=== PATIENT | male | born 1975 | race Caucasian/White ===

== ENCOUNTER → 2016-07-07 | Outpatient (REF) | payer OTHER | LOC: M LAB REF 14:13 | PROVIDERS: ATTEND Physician Assistant | DX: J02.9 Acute pharyngitis, unspecified (principal) ==

== ENCOUNTER 2017-08-31 00:09 | Emergency (ER) | payer OTHER ==
[2017-08-31] MEDS: NS 1,000 ML IV (01:30)
[2017-08-31] MEDS: ONDANSETRON 4MG/2ML VIAL (J2405) IV (01:30)
[2017-08-31 01:33] LABS: BASO # 0.1 10^3/uL (0.0-0.2); BASO % 0.7 % (0.0-1.0); EOS # 0.2 10^3/uL (0.0-0.50); EOS % 3.4 % (0.0-3.0); HEMATOCRIT 43.5 % (42.0-52.0); HEMOGLOBIN 15.7 g/dl (13.5-17.5); IMMATURE GRANULOCYTE % 0.1 % (0-3.0); LYMPH % 14.7 % (24.0-44.0); MEAN CORPUSCULAR HEMOGLOBIN 31.5 pg (27.0-33.0); MEAN CORPUSCULAR HGB CONC 36.1 g/dl (32.0-36.5); MEAN CORPUSCULAR VOLUME 87.3 fl (80.0-96.0); MONO # 0.6 10^3/uL (0.0-0.8); MONO % 7.9 % (0.0-5.0); NEUTROPHILS # 5.1 10^3/uL (1.8-7.7); NEUTROPHILS % 73.2 % (36.0-66.0); PLATELET COUNT, AUTOMATED 165 10^3/uL (150-450); RED BLOOD COUNT 4.98 10^6/uL (4.30-6.10); RED CELL DISTRIBUTION WIDTH 11.9 % (11.5-14.5)
[2017-08-31] MEDS: MORPHINE 4 MG/ML 1ML VIAL/SYRINGE (J2270) IV (01:33)
[2017-08-31 01:41] LABS: KETONE, URINE AUTO RFX TRACE mg/dL (NEGATIVE); MUCUS, URINE RFX MODERATE (NEGATIVE); NITRITE, URINE AUTO RFX NEGATIVE (NEGATIVE); RBC, URINE AUTO RFX 2 /HPF (0-3); SPECIFIC GRAVITY UR AUTO RFX 1.025 (1.002-1.035); SQUAM EPITHELIAL CELL UR AURFX 0 /HPF (0-6)
[2017-08-31 01:44] LABS: ALBUMIN 4.1 GM/DL (3.2-5.2); ALBUMIN/GLOBULIN RATIO 1.14 (1.00-1.93); ALKALINE PHOSPHATASE 82 U/L (45-117); ALT/SGPT 29 U/L (12-78); ANION GAP 5 MEQ/L (8-16); AST/SGOT 18 U/L (7-37); BILIRUBIN,DIRECT 0.2 MG/DL (0.0-0.2); BILIRUBIN,TOTAL 0.5 MG/DL (0.2-1.0); BLOOD UREA NITROGEN 11 MG/DL (7-18); CALCIUM LEVEL 8.6 MG/DL (8.5-10.1); CARBON DIOXIDE LEVEL 32 MEQ/L (21-32); CHLORIDE LEVEL 105 MEQ/L (98-107); CREATININE FOR GFR 1.23 MG/DL (0.70-1.30); GLOMERULAR FILTRATION RATE > 60.0 (>60); GLUCOSE, FASTING 139 MG/DL (70-100); LIPASE 115 U/L (73-393); POTASSIUM SERUM 3.6 MEQ/L (3.5-5.1); SODIUM LEVEL 142 MEQ/L (136-145); TOTAL PROTEIN 7.7 GM/DL (6.4-8.2)
[2017-08-31 01:46] LABS: LEUKOCYTE ESTERASE UR AUTO RFX 1+ (NEGATIVE); WBC, URINE AUTO RFX 24 /HPF (0-3)
[2017-08-31] MEDS ORDERED: ISOVUE-370 76% 100ML VIAL (Q9967) As Ordered (02:19)
[2017-08-31] MEDS: METOCLOPRAMIDE INJ 10MG/2ML VIAL (J2765) IV (03:54)
== END 2017-08-31 05:19 | disposition home or self-care (01) ==
LOC: M ED 00:09
DX: N20.1 Calculus of ureter (principal); K51.90 Ulcerative colitis, unspecified, without complications; K21.9 Gastro-esophageal reflux disease without esophagitis; K57.30 Diverticulosis of large intestine without perforation or abscess without bleeding; K76.0 Fatty (change of) liver, not elsewhere classified; Z79.899 Other long term (current) drug therapy; Z88.8 Allergy status to other drugs, medicaments and biological substances
CPT/HCPCS: J2270

== ENCOUNTER → 2019-12-23 | Outpatient (REF) | payer OTHER ==
[~2019-12-23] MED LIST: AMIT25TA PO; APRI0.37 PO; ENTY1INJ IV; FAMO40TA3 PO; IRON65TA PO; ROWASA PR; VITA200016 PO; ZOFR4TAB14 PO; [UNRECOGNIZED DRUG - OTHER] PO
[2019-12-24 14:18] LABS: HEMATOCRIT 29.8 % (42.0-52.0); HEMOGLOBIN 9.7 g/dl (13.5-17.5); MEAN CORPUSCULAR HEMOGLOBIN 30.8 pg (27.0-33.0); MEAN CORPUSCULAR HGB CONC 32.6 g/dl (32.0-36.5); MEAN CORPUSCULAR VOLUME 94.6 fl (80.0-96.0); PLATELET COUNT, AUTOMATED 150 10^3/uL (150-450); RED BLOOD COUNT 3.15 10^6/uL (4.30-6.10); WHITE BLOOD COUNT 13.8 10^3/uL (4.0-10.0)
[2019-12-24 14:27] LABS: ALBUMIN 3.1 GM/DL (3.2-5.2); ALT/SGPT 29 U/L (12-78); BILIRUBIN,TOTAL 0.3 MG/DL (0.2-1.0); BLOOD UREA NITROGEN 16 MG/DL (7-18); CALCIUM LEVEL 8.9 MG/DL (8.5-10.1); CARBON DIOXIDE LEVEL 28 MEQ/L (21-32); CHLORIDE LEVEL 101 MEQ/L (98-107); CREATININE FOR GFR 0.79 MG/DL (0.70-1.30); GLOMERULAR FILTRATION RATE > 60.0 (>60); GLUCOSE, FASTING 72 MG/DL (70-100); POTASSIUM SERUM 3.9 MEQ/L (3.5-5.1); SODIUM LEVEL 136 MEQ/L (136-145); TOTAL PROTEIN 6.7 GM/DL (6.4-8.2)
[2019-12-24 14:56] LABS: ERYTHROCYTE SEDIMENTATION RATE 60 mm/hr (0-15)
[2019-12-24 15:00] LABS: ATYPICAL LYMPH 1 % (0-5); LYMPHOCYTES 5 % (16-44); METAMYELOCYTES 1 % (0-0); NEUTROPHILS 85 % (28-66)
[2019-12-24 15:01] LABS: PLATELET ESTIMATE NORMAL (NORMAL)
[2019-12-24 15:03] LABS: BURR CELLS 1+
[2019-12-24 15:05] LABS: POIKILOCYTOSIS 1+
== END ==
LOC: M SHH 13:53
PROVIDERS: ATTEND Internal Medicine Hematology & Oncology
DX: K65.1 Peritoneal abscess (principal)

== ENCOUNTER 2020-03-16 14:18 | Inpatient (IN) | payer OTHER ==
[~2020-03-16] VITALS: Ht 177.8 cm; Wt 77.0 kg
[2020-03-16] MEDS ORDERED: NS 2,400 ML in IV 1 EA IV ONE (15:45)
[2020-03-16] MEDS ORDERED: ACETAMINOPHEN 325 MG TAB PO ONE (15:45)
[2020-03-16 16:45] LABS: HEMATOCRIT 25.6 % (42.0-52.0); HEMOGLOBIN 7.9 g/dl (13.5-17.5); MEAN CORPUSCULAR HEMOGLOBIN 31.5 pg (27.0-33.0); MEAN CORPUSCULAR HGB CONC 30.9 g/dl (32.0-36.5); RED BLOOD COUNT 2.51 10^6/uL (4.30-6.10); WHITE BLOOD COUNT 18.6 10^3/uL (4.0-10.0)
--- NOTE | 2020-03-16 16:45 | REP ---
INDICATION: fever. COMPARISON: No comparison study. TECHNIQUE: Two views.. FINDINGS: There is a right-sided Tzqhut-H-Nggh catheter with its tip in the expected location of the superior vena cava near the right atrial junction. The lungs are symmetrically aerated and free of infiltrate. There is slight blunting of the right lateral and both posterior pleural angles indicating small amount of pleural fluid and or pleural thickening posteriorly. No infiltrate is seen. Heart is not enlarged. Pulmonary vasculature is not increased. IMPRESSION: No active cardiopulmonary disease seen. Slight blunting of the posterior pleural angles. Vegaux-P-Kkyh catheter.. <Electronically signed by Edward Peralta > 03/16/20 [id number]
[2020-03-16 16:47] LABS: APPEARANCE, URINE CLEAR (CLEAR); BACTERIA, URINE AUTO NEGATIVE (NEGATIVE); BILIRUBIN, URINE AUTO NEGATIVE (NEGATIVE); BLOOD, URINE BLOOD NEGATIVE (NEGATIVE); COLOR, URINE YELLOW (YELLOW); GLUCOSE, URINE (UA) AUTO NEGATIVE (NEGATIVE); KETONE, URINE AUTO NEGATIVE (NEGATIVE); LEUKOCYTE ESTERASE, URINE AUTO NEGATIVE (NEGATIVE); MUCUS, URINE SMALL (NEGATIVE); NITRITE, URINE AUTO NEGATIVE (NEGATIVE); PROTEIN, URINE AUTO NEGATIVE (NEGATIVE); RBC, URINE AUTO 0 /HPF (0-3); SPECIFIC GRAVITY URINE AUTO 1.021 (1.002-1.035); SQUAMOUS EPITHELIAL CELL UR AU 0 /HPF (0-6); UROBILINOGEN, URINE AUTO 0.2 mg/dL (0.0-2.0); WBC, URINE AUTO 1 /HPF (0-3)
[2020-03-16 16:58] LABS: PLATELET COUNT, AUTOMATED 68 10^3/uL (150-450)
[2020-03-16 17:01] LABS: EOSINOPHILS 1 % (0-3); LYMPHOCYTES 8 % (16-44); NEUTROPHILS 86 % (28-66); PLATELET ESTIMATE DECREASED (NORMAL); TOXIC VACUOLATION 1+
[2020-03-16 17:02] LABS: ANISOCYTOSIS 1+
[2020-03-16 17:10] LABS: INR 1.03; PARTIAL THROMBOPLASTIN TIME 29.8 SECONDS (24.2-38.5); PROTHROMBIN TIME 13.7 SECONDS (12.5-14.3)
[2020-03-16 17:20] LABS: ALT/SGPT 70 U/L (12-78); BILIRUBIN,DIRECT 0.2 MG/DL (0.0-0.2); BILIRUBIN,TOTAL 0.4 MG/DL (0.2-1.0); BLOOD UREA NITROGEN 15 MG/DL (7-18); C REACTIVE PROTEIN QUANTITATIV 8.04 MG/DL (0.00-0.30); CALCIUM LEVEL 8.8 MG/DL (8.5-10.1); CARBON DIOXIDE LEVEL 30 MEQ/L (21-32); CHLORIDE LEVEL 100 MEQ/L (98-107); CK-MB VALUE MASS < 1.0 NG/ML (<3.6); CPK CREATINE PHOSPHOKINASE 110 U/L (39-308); GLOMERULAR FILTRATION RATE > 60.0 (>60); GLUCOSE, FASTING 87 MG/DL (70-100); MB/CK RELATIVE INDEX 0.91 (< OR =4); POTASSIUM SERUM 3.8 MEQ/L (3.5-5.1); SODIUM LEVEL 134 MEQ/L (136-145); TOTAL PROTEIN 6.6 GM/DL (6.4-8.2); TROPONIN I < 0.02 NG/ML (< 0.10)
[2020-03-16 17:33] LABS: D-DIMER QUANT > 4000 ng/ml (<500)
[2020-03-16] MEDS ORDERED: ISOVUE-370 76% 100ML VIAL As Ordered ONE (17:50)
[2020-03-16] MEDS ORDERED: THERTAB52 PO (18:38)
[2020-03-16] MEDS ORDERED: COLA100C5 PO (18:38)
[2020-03-16] MEDS ORDERED: FLON1SPR NARES (18:38)
[2020-03-16] MEDS ORDERED: ATIV1TAB10 PO ×2 (18:38→22:14)
[2020-03-16] MEDS ORDERED: PROC10TA4 PO ×2 (18:38→22:17)
[2020-03-16] MEDS ORDERED: ETOP50CA2 (18:41)
[2020-03-16] MEDS ORDERED: CARB450I12 (18:41)
--- NOTE | 2020-03-16 18:47 | REPVR ---
PROCEDURE INFORMATION: Exam: CT Abdomen And Pelvis With Contrast Exam date and time: 03/16/2020 6:13 PM Age: 44 years old Clinical indication: Fever TECHNIQUE: Imaging protocol: Computed tomography of the abdomen and pelvis with intravenous contrast. Radiation optimization: All CT scans at this facility use at least one of these dose optimization techniques: automated exposure control; mA and/or kV adjustment per patient size (includes targeted exams where dose is matched to clinical indication); or iterative reconstruction. Contrast material: ISOVUE 370; Contrast volume: 100 ml; Contrast route: INTRAVENOUS (IV); COMPARISON: CT ABD/PEL W/IV CONTRAST ONLY 08/31/2017 2:25 AM FINDINGS: Lungs: Compressive atelectasis both lung bases. Pleural space: Small bilateral pleural effusions, right greater than left. Liver: Extensive centrally necrotic bulls eye type metastatic lesions demonstrated throughout the liver measuring up to 5.6 cm in segment 2 of the left lobe. Hepatomegaly. Cystic focus in the posterior aspect of the right lobe of the liver measures 1.6 x 4 x 2.9 cm may represent a necrotic metastasis versus a hepatic cyst. Gallbladder and bile ducts: Normal. No calcified stones. No ductal dilation. Pancreas: Normal. No ductal dilation. Spleen: There is mild splenomegaly with a maximum span of 13.6 centimeters. No focal abnormalities demonstrated. Adrenal glands: Normal. No mass. Kidneys and ureters: Normal. No hydronephrosis. Stomach and bowel: Diverting colostomy in the left side of the abdomen. Ileostomy right side of the abdomen. Appendix: No evidence of appendicitis. Intraperitoneal space: There is a small amount of free intraperitoneal fluid present. Vasculature: Unremarkable. No abdominal aortic aneurysm. Lymph nodes: Unremarkable. No enlarged lymph nodes. Urinary bladder: See "Soft tissues" finding. Reproductive: 3.2 x 3 x 5.9 cm stellate enhancing mass in the pelvic floor located posterosuperior to the seminal vesicles consistent with a drop metastasis. Bones/joints: Unremarkable. No acute fracture. Soft tissues: Heterogeneously enhancing necrotic mass demonstrated in the left lower quadrant measuring 6.9 x 7 x 8 cm arising from/encasing the descending colon, and invading the abdominal wall musculature anteriorly and anterolaterally. Small focus of gas demonstrated within the mass. Small fat containing umbilical hernia. Clinical correlation to exclude incarceration suggested. IMPRESSION: 1. Extensive centrally necrotic bulls eye type metastatic lesions demonstrated throughout the liver measuring up to 5.6 cm in segment 2 of the left lobe. Hepatomegaly. 2. There is mild splenomegaly. No focal abnormalities demonstrated. 3. Locally invasive necrotic mass demonstrated in the left lower quadrant as described above. Small focus of gas in the mass may be related to necrosis although infection is not excluded. 4. 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 5. There is a small amount of free intraperitoneal fluid present. 6. Small fatty umbilical hernia. Clinical correlation to exclude incarceration suggested. Electronically signed by: Geovanni Hernandez On 03/16/2020 18:47:31 PM
--- NOTE | 2020-03-16 18:52 | REPVR ---
PROCEDURE INFORMATION: Exam: CT Angiography Chest With Contrast Exam date and time: 03/16/2020 6:13 PM Age: 44 years old Clinical indication: Fever TECHNIQUE: Imaging protocol: Computed tomographic angiography of the chest with intravenous contrast. 3D rendering (Not supervised by radiologist): MIP and/or 3D reconstructed images were created by the technologist. Radiation optimization: All CT scans at this facility use at least one of these dose optimization techniques: automated exposure control; mA and/or kV adjustment per patient size (includes targeted exams where dose is matched to clinical indication); or iterative reconstruction. Contrast material: ISOVUE 370; Contrast volume: 100 ml; Contrast route: INTRAVENOUS (IV); COMPARISON: IN Chest, 2 view PA, Lat 03/16/2020 3:56 PM FINDINGS: Pulmonary arteries: There are no pulmonary emboli. Aorta: There is no aortic dissection or aneurysm. Lungs: Compressive atelectasis both lung bases. Pleural space: Bilateral small pleural effusions. Right greater than left. Heart: Unremarkable. No cardiomegaly. No pericardial effusion. Lymph nodes: Bilateral hilar lymphadenopathy. Bones/joints: Small sclerotic focus in the right 4th rib. The spine demonstrates mild degenerative changes. Soft tissues: Small calcified granulomata left lung. IMPRESSION: 1. Bilateral small pleural effusions. Right greater than left. 2. There is no aortic dissection or aneurysm. 3. Bilateral hilar lymphadenopathy. 4. There are no pulmonary emboli. 5. No acute pulmonary infiltrates. Electronically signed by: Geovanni Hernandez On 03/16/2020 18:53:24 PM
[2020-03-16] MEDS ORDERED: ACETAMINOPHEN 500 MG TAB PO ONE (22:00)
[2020-03-16] MEDS ORDERED: FAMO40TA3 PO (22:14)
[2020-03-16] MEDS ORDERED: [UNRECOGNIZED DRUG - CODE] IV (22:14)
[2020-03-16] MEDS ORDERED: D31000TA2 PO (22:14)
[2020-03-16] MEDS ORDERED: CARB450I12 IV (22:14)
[2020-03-16] MEDS ORDERED: FLON1SPR (22:14)
[2020-03-16] MEDS ORDERED: ONDA-83 PO (22:17)
[2020-03-16] MEDS ORDERED: ONDANSETRON 4MG/2ML VIAL IV PRN (22:45)
[2020-03-16 23:28] LABS: MAGNESIUM LEVEL 1.7 MG/DL (1.8-2.4)
[2020-03-16] MEDS: PIPERACILLIN/TAZOBACTAM SOD 3.375 GM in D5W MINI-BAG PLUS 50 ML IV SCH (23:41)
[2020-03-16] MEDS: NS 1,000 ML IV SCH (23:41)
--- NOTE | 2020-03-16 23:58 | HPEPDOC ---
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 Patient reports that he was noted to have a fever of 99.9 Fahrenheit and had taken Tylenol. Patient reported that he was having an increased heart rate and chills. Patient reported that his visiting home health aide had reported that he had decreased sounds in his lung bases. Patient reports some shortness of breath, but denies any cough, chest pain or palpitations. Patient reports that he has an ileostomy and mucous stoma, both of which have output that has not changed significantly. Patient denies any abdominal pain. Reports that he does have some output from his rectum, although not significant. Denies any urinary discomfort. Patient recently was found to be anemic and was requiring 1 unit PRBC tra nsfusion on Monday. Patient receives all his care at [facility] where he has received his oncologic evaluation and surgical intervention. 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; involving 2 drainage catheters, complicated by colonic abscess, fistula Ulcerative colitis; previously was on Entyvio Past Surgical History: Small bowel obstruction with ileostomy ascending and transverse colon resection 02/09/2020 - His descending and sigmoid colon are still present and there is a mucous stoma at the proximal site of his descending colon Vasectomy 2010 Right wrist fracture as a child Allergies: See below Medications: See below Family History: - Mother with a history of elevated blood pressure in father with a history of diverticulosis, BPH and hypothyroidism Social History: - Denies the use of alcohol, tobacco or illicit drugs - Denies recent travel or sick contacts - Lives with and 2 children - 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 Review of Systems: 10 point review of systems complete, all negative otherwise stated in HPI Physical exam: - Vitals: BP [116/55], HR [116], RR [18], Sat [94%RA], Temp [102.2F] - General: Lying in bed, appears to be comfortable, Speaking in full sentences, AAOx3 - HEENT: NC, AT, PERRLA - CVS: RRR, +S1S2, - Murmurs / rubs / gallops - Lungs: Diminished lung sounds at bases, No appreciable wheezing / rales / rhonchi - Abdomen: Soft, Non-distended, Non-tender, right upper quadrant with ileostomy stoma, left upper quadrant with mucous stoma, 2 areas in the left lower quadrant dressing in place from his prior drains - Extremities: No lower extremity edema, No calf tenderness - Neuro: No focal motor or sensory deficit - Skin: No visible rashes Labs: See below Imaging: CXR 03/16: No active cardiopulmonary disease seen. Slight blunting of the posterior pleural angles. Rqrwin-A-Lzeb catheter.. CTA chest 03/16: 1. Bilateral small pleural effusions. Right greater than left. 2. There is no aortic dissection or aneurysm. 3. Bilateral hilar lymphadenopathy. 4. There are no pulmonary emboli. 5. No acute pulmonary infiltrates. CTA abdomen / pelvis 03/16: 1. Extensive centrally necrotic bulls eye type metastatic lesions demonstrated throughout the liver measuring up to 5.6 cm in segment 2 of the left lobe. Hepatomegaly. 2. There is mild splenomegaly. No focal abnormalities demonstrated. 3. Locally invasive necrotic mass demonstrated in the left lower quadrant as described above. Small focus of gas in the mass may be related to necrosis although infection is not excluded. 4. 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 5. There is a small amount of free intraperitoneal fluid present. 6. Small fatty umbilical hernia. Clinical correlation to exclude incarceration suggested. EKG: See below Assessment and Plan: Fever / Leukocytosis - possibly 2/2 intra-abdominal, possibly 2/2 bacteremia - Presented to the emergency room with complaints of fevers that started today, associated with chills and shortness breath with exertion - Reported history of VRE abscess within his abdomen - Physical reveals diminished lung sounds at bases - Leukocytosis with neutrophil predominance and bandemia - Elevated CRP - UA negative - Imaging noted above; no evidence of pneumonia, however there appears to be the left lower quadrant mass with small focus of gas and necrotic lesion in the liver - Will check blood cultures 2 sets / pro-calcitonin - Will start IV fluid hydration / broad spectrum antibiotics (Vancomycin and Daptomycin) Symptomatic anemia - Patient reports that he has received a contusion on Monday for a low hemoglobin across hospital - Will transfuse 2 units PRBC today Thrombocytopenia - No evidence of bleeding - Will continue to monitor Hyponatremia (mild) - likely 2/2 hypotonic hypovolemic etiology - Will c/w IV fluid hydration - Will perform workup if still remains abnormal 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 - Diagnosed 11/2018, early stage, with 4 rounds of chemotherapy - Recurrence 10/2019, reported metastatic, on chemotherapy currently VRE Abscess 11/2019 - Required 2 drainage catheters, complicated by fistula development Ulcerative colitis - Previously was on Entyvio; has stopped use currently DVT prophylaxis - Will start TEDs/Sequentials Vital Signs Vital Signs Date Time Temp Pulse Resp B/P (MAP) Pulse Ox O2 Delivery O2 Flow Rate FiO2 03/16/20 23:41 102.2 116 18 116/55 (75) 94 Room Air Laboratory Data Labs 24H Laboratory Tests 2 03/16/20 16:25: 03/16/20 16:34: Immature Granulocyte % (Auto) , Neutrophils (%) (Auto) , Nucleated Red Blood Cells % (auto) 0.0, Neutrophils 86H, Band Neutrophils 5, Lymphocytes (Manual) 8L, Eosinophils (Manual) 1, Anisocytosis 1+, Macrocytosis 2+, Toxic Vacuolation 1+, Platelet Estimate DECREASED, Immature Platelet Fraction 4.7, Prothrombin Time 13.7, Prothromb Time International Ratio 1.03, Activated Partial Thromboplast Time 29.8, D-Dimer, Quantitative > 4000H, Urine Color YELLOW, Urine Appearance CLEAR, Urine pH 5.0, Urine Specific [place] 1.021, Urine Protein NEGATIVE, Urine Glucose (Auto)(UA) NEGATIVE, Urine Ketones (Auto) NEGATIVE, Urine Blood NEGATIVE, Urine Nitrite NEGATIVE, Urine Bilirubin NEGATIVE, Urine Urobilinogen 0.2, Urine Leukocyte Esterase (Auto) NEGATIVE, Urine WBC (Auto) 1, Urine RBC (Auto) 0, Urine Hyaline Casts (Auto) 0, Urine Bacteria (Auto) NEGATIVE, Urine Squamous Epithelial Cells 0, Urine Mucus (Auto) SMALL, Urine Sperm (Auto) , Anion Gap 4L, Glomerular Filtration Rate > 60.0, Lactic Acid Level 1.7, Calcium Level 8.8, Magnesium Level 1.7L, Total Bilirubin 0.4, Direct Bilirubin 0.2, Aspartate Amino Transf (AST/SGOT) 50H, Alanine Aminotransferase (ALT/SGPT) 70, Alkaline Phosphatase 349H, Total Creatine Kinase 110, Creatine Kinase MB < 1.0, Creatine Kinase MB Relative Index 0.91, Troponin I < 0.02, C- Reactive Protein, Quantitative 8.04H, Total Protein 6.6, Albumin 3.0L, Albumin/Globulin Ratio 0.8 CBC/BMP Laboratory Tests 03/16/20 16:34 Microbiology Microbiology 03/16/20 Respiratory Virus Panel (PCR) ([facility]) - Final, Complete 03/16/20 Blood Culture, Received Pending 03/16/20 Urine Culture, Received Pending 03/16/20 Blood Culture, Received Pending Home Medications Scheduled Carboplatin (Carboplatin) 10 Mg/1 Ml Vial, Unknown Dose IV ASDIRECTED EVERY 3 WEEKS AT ONCOLOGY Cholecalciferol (Vitamin D3) (Vitamin D3) 1,000 Unit Tablet, 2,000 UNITS PO DAILY Docusate Sodium (Colace) 100 Mg Capsule, 200 MG PO DAILY Etoposide Phosphate (Etopophos) 100 Mg Vial, Unknown Dose IV ASDIRECTED EVERY 3 WEEKS AT ONCOLOGY Famotidine (Famotidine) 40 Mg Tablet, 40 MG PO DAILY Fluticasone Propionate (Flonase Allergy Relief) 9.9 Ml [place].susp, 1 SPRAY NA DAILY Scheduled PRN Ondansetron HCl (Ondansetron HCl) 4 Mg Tablet, 4 MG PO Q6HP PRN for NAUSEA OR VOMITING Prochlorperazine Maleate (Prochlorperazine Maleate) 10 Mg Tablet, 10 MG PO Q6H PRN for NAUSEA OR VOMITING Allergies Coded Allergies: azathioprine (Verified Allergy, Severe, pancreatitis, 03/16/20) OSMAN KIRBY MD Mar 16, 2020 23:58
[2020-03-17] VITALS (13 sets, daily range): BP systolic 102–147; BP diastolic 55–70
[2020-03-17] MEDS: DAPTOmycin 500 MG in NS 50 ML IV SCH ×2
--- NOTE | 2020-03-17 00:49 | ECGEPIP ---
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
[2020-03-17] MEDS: ACETAMINOPHEN TAB 650MG DOSE (2X325MG) PO PRN ×2 (04:33→20:41)
[2020-03-17] MEDS: PIPERACILLIN/TAZOBACTAM SOD 3.375 GM in D5W MINI-BAG PLUS 50 ML IV SCH ×4 (04:33→23:33)
[2020-03-17] MEDS: NS 1,000 ML IV SCH ×2 (05:07→12:05)
[2020-03-17 06:04] LABS: MEAN CORPUSCULAR HEMOGLOBIN 31.8 pg (27.0-33.0); MEAN CORPUSCULAR HGB CONC 31.3 g/dl (32.0-36.5); MEAN CORPUSCULAR VOLUME 101.5 fl (80.0-96.0); RED BLOOD COUNT 1.95 10^6/uL (4.30-6.10); WHITE BLOOD COUNT 8.3 10^3/uL (4.0-10.0)
[2020-03-17 06:18] LABS: HEMATOCRIT 19.8 % (42.0-52.0); HEMOGLOBIN 6.2 g/dl (13.5-17.5); PLATELET COUNT, AUTOMATED 44 10^3/uL (150-450)
[2020-03-17 06:30] LABS: BLOOD UREA NITROGEN 12 MG/DL (7-18); CALCIUM LEVEL 7.9 MG/DL (8.5-10.1); CARBON DIOXIDE LEVEL 26 MEQ/L (21-32); CHLORIDE LEVEL 102 MEQ/L (98-107); CREATININE FOR GFR 0.61 MG/DL (0.70-1.30); GLOMERULAR FILTRATION RATE > 60.0 (>60); GLUCOSE, FASTING 106 MG/DL (70-100); MAGNESIUM LEVEL 1.6 MG/DL (1.8-2.4); POTASSIUM SERUM 3.6 MEQ/L (3.5-5.1); SODIUM LEVEL 134 MEQ/L (136-145)
[2020-03-17] MEDS ORDERED: IBUPROFEN 600MG TAB PO ONE (06:30)
[2020-03-17 06:45] LABS: LYMPHOCYTES 2 % (16-44); METAMYELOCYTES 1 % (0-0); MONOCYTES 1 % (0-5); NEUTROPHILS 90 % (28-66); PLATELET ESTIMATE MARKED DECREASE (NORMAL)
[2020-03-17 06:47] LABS: DOHLE BODIES 1+
[2020-03-17] MEDS: DOCUSATE SODIUM 100MG CAPSULE PO SCH (08:45)
[2020-03-17] MEDS: FLUTICASONE PROP 0.05% NASAL SPRAY 16 GM (FLONASE) SCH (08:45)
[2020-03-17] MEDS: FAMOTIDINE 20 MG TAB PO SCH (08:45)
[2020-03-17] MEDS: VITAMIN D 1,000 INTERNATIONAL UNITS TABLET PO SCH (08:45)
--- NOTE | 2020-03-17 09:53 | IPNPDOC ---
Date Seen The patient was seen on 03/17/20. Progress Note Subjective: LLQ abd drain site soaked overnight, and malodorous discharge from right ileostomy which has increased drainage through filter. still febrile. not c/o much pain. Objective: PE vitals: see belwo General: no distress. AAOx3 HEENT: no JVD no thyromegaly tongue midline CVS: RRR, +S1S2 nondisplaced PMI Lungs: Diminished. CTAB no adventitious breath sounds Abdomen: Soft, Non-distended, Non-tender, right upper quadrant ileostomy stoma, left upper quadrant with mucous stoma, 2 LLQ incisions. Extremities: No lower extremity edema, No calf tenderness Labs: See below Imaging: CXR 03/16: No active cardiopulmonary disease seen. Slight blunting of the posterior pleural angles. Atkyjp-S-Rwgc catheter.. CTA chest 03/16: 1. Bilateral small pleural effusions. Right greater than left. 2. There is no aortic dissection or aneurysm. 3. Bilateral hilar lymphadenopathy. 4. There are no pulmonary emboli. 5. No acute pulmonary infiltrates. CTA abdomen / pelvis 03/16: 1. Extensive centrally necrotic bulls eye type metastatic lesions demonstrated throughout the liver measuring up to 5.6 cm in segment 2 of the left lobe. Hepatomegaly. 2. There is mild splenomegaly. No focal abnormalities demonstrated. 3. Locally invasive necrotic mass demonstrated in the left lower quadrant as described above. Small focus of gas in the mass may be related to necrosis although infection is not excluded. 4. 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 5. There is a small amount of free intraperitoneal fluid present. 6. Small fatty umbilical hernia. Clinical correlation to exclude incarceration suggested. Assessment: Sepsis Intraabdominal Abscess-liver necrotic area, llq mass eroding into abd wall? 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 If continues to be febrile with increased leukocytosis, may need ID consult. await culture results.IR consulted for drainage placement. VS, I&O, 24H, Fishbone Vital Signs/I&O Vital Signs Date Time Temp Pulse Resp B/P (MAP) Pulse Ox O2 Delivery O2 Flow Rate FiO2 03/17/20 05:25 101.2 03/17/20 04:08 119 19 147/70 (95) 94 Room Air I&O- Last 24 Hours up to 6 AM 03/17/20 06:00 Intake Total 2860 ml Output Total 900 ml Balance 1960 ml Laboratory Data 24H LABS Laboratory Tests 2 03/16/20 16:25: 03/16/20 16:34: Immature Granulocyte % (Auto) , Neutrophils (%) (Auto) , Nucleated Red Blood Cells % (auto) 0.0, Neutrophils 86H, Band Neutrophils 5, Lymphocytes (Manual) 8L, Eosinophils (Manual) 1, Anisocytosis 1+, Macrocytosis 2+, Toxic Vacuolation 1+, Platelet Estimate DECREASED, Immature Platelet Fraction 4.7, Prothrombin Time 13.7, Prothromb Time International Ratio 1.03, Activated Partial Th romboplast Time 29.8, D-Dimer, Quantitative > 4000H, Urine Color YELLOW, Urine Appearance CLEAR, Urine pH 5.0, Urine Specific [place] 1.021, Urine Protein NEGATIVE, Urine Glucose (Auto)(UA) NEGATIVE, Urine Ketones (Auto) NEGATIVE, Urine Blood NEGATIVE, Urine Nitrite NEGATIVE, Urine Bilirubin NEGATIVE, Urine Urobilinogen 0.2, Urine Leukocyte Esterase (Auto) NEGATIVE, Urine WBC (Auto) 1, Urine RBC (Auto) 0, Urine Hyaline Casts (Auto) 0, Urine Bacteria (Auto) NEGATIVE, Urine Squamous Epithelial Cells 0, Urine Mucus (Auto) SMALL, Urine Sperm (Auto) , Anion Gap 4L, Glomerular Filtration Rate > 60.0, Lactic Acid Level 1.7, Calcium Level 8.8, Magnesium Level 1.7L, Total Bilirubin 0.4, Direct Bilirubin 0.2, Aspartate Amino Transf (AST/SGOT) 50H, Alanine Aminotransferase (ALT/SGPT) 70, Alkaline Phosphatase 349H, Total Creatine Kinase 110, Creatine Kinase MB < 1.0, Creatine Kinase MB Relative Index 0.91, Troponin I < 0.02, C- Reactive Protein, Quantitative 8.04H, Total Protein 6.6, Albumin 3.0L, Albumin/Globulin Ratio 0.8 03/17/20 05:45: Immature Granulocyte % (Auto) , Neutrophils (%) (Auto) , Nucleated Red Blood Cells % (auto) 0.0, Neutrophils 90H, Band Neutrophils 6, Lymphocytes (Manual) 2L, Platelet Estimate MARKED DECREASE, Anion Gap 6L, Glomerular Filtration Rate > 60.0, Calcium Level 7.9L, Magnesium Level 1.6L, Monocytes (Manual) 1, Metamyelocytes 1H, Red Blood Cell Morphology NORMAL, Dohle Bodies 1+ CBC/BMP Laboratory Tests 03/16/20 16:34 03/17/20 05:45 Microbiology Microbiology 03/16/20 Respiratory Virus Panel (PCR) ([facility]) - Final, Complete 03/16/20 Blood Culture, Received Pending 03/16/20 Urine Culture, Received Pending 03/16/20 Blood Culture, Received Pending PREETHI WARNER MD Mar 17, 2020 09:01
[2020-03-17] MEDS ORDERED: IBUPROFEN 400 MG TAB PO PRN (12:30)
[2020-03-17] MEDS ORDERED: IBUPROFEN 400 MG TAB PO ONE (12:30)
[2020-03-17] MEDS ORDERED: MAG SULF 1GM/100ML (MAG RUN) 1 GM in IV 1 EA IV ONE (13:00)
[2020-03-17 19:07] LABS: HEMATOCRIT 23.6 % (42.0-52.0); HEMOGLOBIN 7.5 g/dl (13.5-17.5)
--- NOTE | 2020-03-17 20:03 | CR ---
INFECTIOUS DISEASE CONSULTATION REASON FOR CONSULTATION: Fever in a patient with left sigmoid abscess with perforation and fistula and metastatic small cell neuroendocrine carcinoma. 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 The patient has had multiple problems since this recurrent cancer. He was started on chemotherapy every 3 weeks with Carboplatin and Etoposide 3 days every 3 weeks along with Neulasta. The patient was scheduled every 21 days until disease progression or intolerable side effects. He developed a fever with every single chemotherapy and was hospitalized initially with this sigmoid abscess that was drained. The drain stayed in place for about a week, then was removed. A second hospitalization around February 03 for 3 weeks. He had another drain placed in the left lower quadrant; that stayed in for a couple months and always had problems with leakage around the drain and the patient could not wait to get that drain removed. Once of the initial drains has healed but the other drain still has purulent discharge from the area. He had his chemotherapy last week Monday, and Monday and presented to the hospital today with recurrent fever up to 102.4, chills, shortness of breath. The patient was started on broad spectrum antibiotics including Daptomycin and Zosyn. He feels better today. He denies any cough. No nausea or vomiting. No urinary symptoms. No dysuria or hematuria. He does sometimes have pressure which he relates to the multiple abdominal surgeries he has had. PAST MEDICAL HISTORY: The patient's past medical history is significant for: 1. Ulcerative colitis on Entyvio which has been on hold since November. 2. 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 3. 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 Infectious Disease was consulted while he was in the hospital. He had home IV antibiotics for a short while. 4. Aviary abscess in November 2019 with two drainage procedures with now a fistula. PAST SURGICAL HISTORY: The patient's past surgical history is significant for: 1. Early February the patient had a right sided colectomy with transverse colectomy and a small-bowel obstruction with ileostomy of the ascending colon. Sigmoid and descending are still present and a mucostoma was formed until the patient can have a total colectomy once his cancer is under better control. 2. History of vasectomy. 3. Right wrist fracture as a child. FAMILY HISTORY: The patient's family history is positive for hypertension and diverticulosis. SOCIAL HISTORY: He is . He lives with his and children. 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. He denies any recent travel. He denies alcohol or drug use. ALLERGIES: Azathioprine caused pancreatitis. LABORATORY DATA: White count was 18.6 yesterday. Today it was 8.3. Hemoglobin 7.9, today 6.2, hematocrit 19.8, platelets 44, 19% neutrophils, 6% bands, 2% lymphocytes. Sodium 134, potassium 3.6, chloride 102, bicarbonate 26, BUN 12, creatinine 0.61, glucose 106, calcium is 7.9, magnesium 1.6, lactic 1.7, procalcitonin was 1.3. CRP 8.04, AST 50, ALT 70, alkaline phosphatase 349, total CPK 110. Urinalysis had one white cell, zero red cells. PT 13.7, PTT 29.8, D-dimer more than 4,000. Blood cultures two sets are no growth after 24 hours. Urine culture is pending. Respiratory panel biofire was negative. Stool Hemoccult was negative. IMAGING DATA: CT abdomen and pelvis was not compared to other previous CT's as there were in [place]. There is an extensively central necrotic Bullseye type metastatic lesion in the liver, measuring about 5.6 cm, mild splenomegaly and other necrotic mass in the left lower quadrant with small gas in the mass, may be related to necrosis but infection is in the differential. Descending mass invades the descending colon, the abdominal wall musculature anteriorly and anterolaterally. CT angiogram showed compressive atelectasis, bilateral hilar adenopathy, no cardiomegaly, no pericardial effusion, small pleural effusions. No pulmonary embolism. Chest x-ray no active disease. He has an infusaport in place. PHYSICAL EXAMINATION: VITAL SIGNS: Temperature 99.6, pulse 96, respirations 18, blood pressure 114/63, O2 sat 94% on room air. HEENT: Pupils equal and reactive, anicteric pale conjunctivae. HEART: Normal S1, S2, no murmurs, rubs or gallops appreciated. LUNGS: Clear. No rales, rhonchi or wheezes. CHEST: Chest wall upper right chest [id number] not accessed. BACK: No CVA or lumbosacral tenderness. EXTREMITIES: No clubbing, cyanosis, or edema. ABDOMEN: Distended with left mucous ostomy with a drainage bag, a right ileostomy, another drainage bag. Left lower quadrant has a healed scar from the first drain and another fistula that has purulent drainage with two openings that are draining purulent material. There is a large mass that is felt indurated in the left lower quadrant, slightly tender to touch. SKIN: No rashes, no ecchymosis, no other findings. IMPRESSION: This is a pleasant 44-year-old gentleman with who unfortunately has significant disease with ulcerative colitis and metastatic neuroendocrine sigmoid, well differentiated, high grade neuroendocrine tumor, who has been on chemotherapy. Cycle 5 was scheduled on 03/11 with Carboplatin and Etoposide with Neulasta. The patient presents with recurrent fever, probably related to persistent sigmoid abscess with fistula. The patient has responded to IV Zosyn and Daptomycin. He has a previous history of VRE. PLAN: 1. A culture was obtained from the draining fistula for gram stain and culture as well as fungal smear and culture would continue with Daptomycin and IV Zosyn. Please consult with Radiology to discuss whether the patient needs another drainage procedure and have them obtain the records from [place] to compare with previous CT that had been done last month, whether he needs another drain or just interventional drainage, interventional aspiration of the abscess for culture. I would also recommend calling Dr. Lopes, who is a primary oncologist, on taking care of the patient for further input. Telephone number is [phone]. 2. Pancytopenia - The patient has significant anemia and thrombocytopenia, probably related to his recent chemotherapy that he received on 03/11. This needs to be discussed with his oncologist. Thank you for this consultation.
[2020-03-18] VITALS: BP 113/62
[2020-03-18] MEDS: DAPTOmycin 500 MG in NS 50 ML IV SCH (00:44)
[2020-03-18 04:00] VITALS: BP 117/65
[2020-03-18] MEDS: PIPERACILLIN/TAZOBACTAM SOD 3.375 GM in D5W MINI-BAG PLUS 50 ML IV SCH ×4 (04:55→23:02)
[2020-03-18] MEDS: ACETAMINOPHEN TAB 650MG DOSE (2X325MG) PO PRN ×3 (04:56→20:41)
[2020-03-18 05:56] LABS: HEMATOCRIT 25.1 % (42.0-52.0); MEAN CORPUSCULAR HEMOGLOBIN 31.5 pg (27.0-33.0); MEAN CORPUSCULAR HGB CONC 31.9 g/dl (32.0-36.5); MEAN CORPUSCULAR VOLUME 98.8 fl (80.0-96.0); RED BLOOD COUNT 2.54 10^6/uL (4.30-6.10); WHITE BLOOD COUNT 2.4 10^3/uL (4.0-10.0)
[2020-03-18 06:06] LABS: INR 1.14; PROTHROMBIN TIME 14.9 SECONDS (12.5-14.3)
[2020-03-18 06:10] LABS: PLATELET COUNT, AUTOMATED 30 10^3/uL (150-450)
[2020-03-18 06:24] LABS: ANISOCYTOSIS 1+; LYMPHOCYTES 15 % (16-44); MONOCYTES 1 % (0-5); NEUTROPHILS 84 % (28-66); PLATELET ESTIMATE MARKED DECREASE (NORMAL); TEAR DROP CELLS 1+
[2020-03-18 06:39] LABS: BLOOD UREA NITROGEN 10 MG/DL (7-18); CALCIUM LEVEL 7.8 MG/DL (8.5-10.1); CARBON DIOXIDE LEVEL 26 MEQ/L (21-32); CHLORIDE LEVEL 104 MEQ/L (98-107); CREATININE FOR GFR 0.56 MG/DL (0.70-1.30); GLOMERULAR FILTRATION RATE > 60.0 (>60); GLUCOSE, FASTING 93 MG/DL (70-100); MAGNESIUM LEVEL 1.8 MG/DL (1.8-2.4); POTASSIUM SERUM 3.6 MEQ/L (3.5-5.1); SODIUM LEVEL 135 MEQ/L (136-145)
[2020-03-18 08:00] VITALS: BP 113/60
[2020-03-18] MEDS: NS 1,000 ML IV SCH ×5 (08:05→23:01)
[2020-03-18] MEDS: FLUTICASONE PROP 0.05% NASAL SPRAY 16 GM (FLONASE) SCH (09:00)
[2020-03-18] MEDS: FAMOTIDINE 20 MG TAB PO SCH (09:00)
[2020-03-18] MEDS: VITAMIN D 1,000 INTERNATIONAL UNITS TABLET PO SCH (09:00)
[2020-03-18] MEDS: DOCUSATE SODIUM 100MG CAPSULE PO SCH (09:00)
--- NOTE | 2020-03-18 10:52 | CR ---
CONSULTATION DATE OF CONSULTATION: 03/18/2020 REASON FOR CONSULTATION: Abdominal abscess. HISTORY OF PRESENT ILLNESS: The patient is a 44-year-old male with a history of small-cell neuroendocrine carcinoma of his left sigmoid colon that was diagnosed in November 2018. It was a small polyp at the time. He was treated non-operatively with chemo and then follow-up in October of this year revealed that he had a large mass there that had recurred. Because of that, he ended up with an obstruction. He underwent ascending and transverse colectomy with an ileostomy and a mucous fistula. Since then, he has had hospitalizations after his chemo due to persistent fevers as well as abscesses. He has already had multiple drains placed in the left lower quadrant. The plan apparently is to proceed with a debulking and final resection of his mass after this shrinks down, however he has been unsuccessful so far with the chemo and the mass keeps becoming infected. He presented here on the with fevers. IR was unable to place any drains in his liver due to the size. They are going to take a look today with an ultrasound to see if they can possibly get another drain in his left lower quadrant. Patient at this time would like to avoid that if possible because he has had complications with his drain placements in the past couple of months. He normally gets all of his care down at the colorectal group in [facility]. PAST MEDICAL HISTORY: Small-cell neuroendocrine carcinoma of the sigmoid colon. Ulcerative colitis. PAST SURGICAL HISTORY: Small bowel obstruction with ileostomy, ascending and transverse colon resection. Vasectomy. ALLERGIES: Azathioprine. MEDICATIONS: Please see med req. REVIEW OF SYSTEMS: Per above or as stated in the HPI. Currently denies any abdominal pain, nausea, vomiting or fevers. PHYSICAL EXAMINATION: GENERAL: The patient is alert and oriented x3, in no acute distress. VITAL SIGNS: Temperature 99.1, pulse 94, respirations 18, blood pressure 117/65, pulse oximetry 94% on room air. HEENT: Pupils equally round and reactive to light and accommodation. HEART: S1 and S2. Regular rate and rhythm. LUNGS: Clear to auscultation bilaterally. ABDOMEN: Soft, nontender and nondistended. Colostomy and mucous fistula are patent. He also has a slight fistulous tract in his left lower quadrant from previous drain placement with a dressing in place. EXTREMITIES: No clubbing, cyanosis or edema. LABORATORY DATA: White count 2.4, hemoglobin 8, platelets 30, potassium 3.6, creatinine 1.56. IMAGING: CT of the abdomen and pelvis done on the shows essentially necrotic bull's-eye type metastatic lesions demonstrated throughout the liver measuring up to 5.6 cm. Hepatomegaly. Mild splenomegaly. Locally invasive necrotic mass demonstrated in the left lower quadrant. Small focus of gas in the mass may be related to necrosis although infection is not excluded. Findings compatible with drop metastasis in the pelvis, a small amount of free intraperitoneal fluid is present. There is also a small fatty umbilical hernia. ASSESSMENT AND PLAN: The patient is a 44-year-old male currently with Stage IV small-cell neuroendocrine tumor of the colon with metastatic lesions to the liver, currently undergoing chemotherapy, however he keeps developing fevers. He claims these fevers he usually gets post chemo are different this time and likely are secondary to an infection of this necrotic mass in his left lower quadrant. Interventional Radiology is going to attempt to look today with an ultrasound to see if they can possibly get a drain in place. If not, we will continue treat him with IV fluids and antibiotics pending culture results from the drainage from the left lower quadrant fistula. At this point, there is no surgical intervention necessary or available here. The procedure he needs is extremely extensive and unlikely to even be performed at the colorectal group at this point until his mass shrinks down some. That is, however being complicated by his difficulty to tolerate the chemotherapy. Unfortunately for him this mass is very aggressive and does not show any signs of slowing down at this point. The plan is just continue with palliative treatment for now, likely discharge him home once his fever is gone for 24 hours and we can get him on a proper antibiotic regimen and then we will have him continue with his colorectal group from there.
--- NOTE | 2020-03-18 11:20 | REP ---
INDICATION: left lower quadrant. Patient with a advanced neuroendocrine tumor in sepsis. Recent drainage catheter removal left lower quadrant. Copious transcutaneous drainage. COMPARISON: Comparison CT study 03/16/2020.. TECHNIQUE: Transabdominal scanning left lower quadrant. FINDINGS: Left flank and left lower quadrant is scanned. There is mild ascites seen in the lower abdomen per to particularly on the right. There is some soft tissue edema and swelling and the abdominal wall in the left flank and left lower quadrant but no drainable abscess is seen. There is evidence of mass effect encasing bowel in the left lower quadrant. IMPRESSION: No drainable abscess seen. <Electronically signed by Edward Peralta > 03/18/20 1114
--- NOTE | 2020-03-18 12:12 | IPNPDOC ---
Date Seen The patient was seen on 03/18/20. Progress Note Subjective: Continues to have low-grade temperatures overnight, but improved from admission. No complaints of chills, abdominal pain is tolerable, rated at 3 out of 10 when he is not moving. He continues to have purulent malodorous drainage through the enterocutaneous fistula in the left lower quadrant. Objective: PE vitals: Stable General: no distress. AAOx3 HEENT: no JVD no thyromegaly tongue midline CVS: RRR, +S1S2 nondisplaced PMI Lungs: Diminished. CTAB no adventitious breath sounds Abdomen: Soft, Non-distended, Non-tender, right upper quadrant ileostomy stoma bag w feces , left upper quadrant with mucous stoma, 2 LLQ incisions purulent drainage on the lateral incision, malodorous Extremities: No lower extremity edema, No calf tenderness Labs: See below Imaging: CXR 03/16: No active cardiopulmonary disease seen. Slight blunting of the posterior pleural angles. Yydraa-E-Nemg catheter.. CTA chest 03/16: 1. Bilateral small pleural effusions. Right greater than left. 2. There is no aortic dissection or aneurysm. 3. Bilateral hilar lymphadenopathy. 4. There are no pulmonary emboli. 5. No acute pulmonary infiltrates. CTA abdomen / pelvis 03/16: 1. Extensive centrally necrotic bulls eye type metastatic lesions demonstrated throughout the liver measuring up to 5.6 cm in segment 2 of the left lobe. Hepatomegaly. 2. There is mild splenomegaly. No focal abnormalities demonstrated. 3. Locally invasive necrotic mass demonstrated in the left lower quadrant as xavi cribed above. Small focus of gas in the mass may be related to necrosis although infection is not excluded. 4. 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 5. There is a small amount of free intraperitoneal fluid present. 6. Small fatty umbilical hernia. Clinical correlation to exclude incarceration suggested. 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 There is no significant collection requiring drainage placement. Patient has an open lesion that is purulent and draining openly. He is defervescing with low-grade temperatures now responding well to antibiotics with decreasing white blood cell count. We're awaiting culture results to de-escalate antibiotics appropriately. Patient will need immediate follow-up with his colorectal surgeon in [place]. Despite aggressive chemotherapy, Patient has developed multiple intra-abdominal infections requiring intravenous antibiotics. Before definitive surgery for the enterocutaneous fistula and abscesses can be dealt with from his ulcerative colitis, Patient requires his tumor burden to be decreased, but has been complicated by recurrent infections. VS, I&O, 24H, Fishbone Vital Signs/I&O Vital Signs Date Time Temp Pulse Resp B/P (MAP) Pulse Ox O2 Delivery O2 Flow Rate FiO2 03/18/20 08:00 98.8 85 18 113/60 (77) 97 Room Air I&O- Last 24 Hours up to 6 AM 03/18/20 06:00 Intake Total 4380 ml Output Total 2775 ml Balance 1605 ml Laboratory Data 24H LABS Laboratory Tests 2 03/18/20 05:41: Neutrophils (%) (Auto) , Nucleated Red Blood Cells % (auto) 0.0, Neutrophils 84H, Lymphocytes (Manual) 15L, Monocytes (Manual) 1, Anisocytosis 1+, Macrocytosis 1+, Tear Drop Cells 1+, Platelet Estimate MARKED DECREASE, Immature Platelet Fraction 2.4, Prothrombin Time 14.9H, Prothromb Time International Ratio 1.14, Anion Gap 5L, Glomerular Filtration Rate > 60.0, Calcium Level 7.8L, Magnesium Level 1.8 CBC/BMP Laboratory Tests 03/17/20 18:51 03/18/20 05:41 Microbiology Microbiology 03/17/20 Fungal Smear, Received Pending 03/17/20 Fungal Culture, Received Pending 03/17/20 Gram Stain - Final, Resulted 03/17/20 Abscess Culture, Resulted Pending 03/17/20 Stool Occult Blood (MOOKIE) - Final, Complete 03/16/20 Respiratory Virus Panel (PCR) (MOOKIE) - Final, Complete 03/16/20 Blood Culture - Preliminary, Resulted No growth after 24 hours . All specim... 03/16/20 Urine Culture - Final, Complete 03/16/20 Blood Culture - Preliminary, Resulted No growth after 24 hours . All specim... PREETHI WARNER MD Mar 18, 2020 12:06
[2020-03-18 14:40] VITALS: BP 124/70
[2020-03-18 20:00] VITALS: BP 119/69
[2020-03-19] VITALS (14 sets, daily range): BP systolic 114–118; BP diastolic 65–75
[2020-03-19] MEDS: DAPTOmycin 500 MG in NS 50 ML IV SCH (00:14)
[2020-03-19] MEDS: PIPERACILLIN/TAZOBACTAM SOD 3.375 GM in D5W MINI-BAG PLUS 50 ML IV SCH ×4 (05:01→23:27)
[2020-03-19] MEDS: NS 1,000 ML IV SCH ×3 (05:01→17:25)
[2020-03-19 07:30] LABS: BASO % 1.1 % (0.0-1.0); EOS % 3.3 % (0.0-3.0); HEMATOCRIT 26.2 % (42.0-52.0); HEMOGLOBIN 7.9 g/dl (13.5-17.5); LYMPH # 0.3 10^3/uL (1.5-5.0); LYMPH % 30.8 % (24.0-44.0); MEAN CORPUSCULAR HEMOGLOBIN 29.9 pg (27.0-33.0); MEAN CORPUSCULAR HGB CONC 30.2 g/dl (32.0-36.5); MEAN CORPUSCULAR VOLUME 99.2 fl (80.0-96.0); MONO # 0.1 10^3/uL (0.0-0.8); MONO % 6.6 % (0.0-5.0); NEUTROPHILS % 57.1 % (36.0-66.0); RED BLOOD COUNT 2.64 10^6/uL (4.30-6.10)
[2020-03-19 07:36] LABS: NEUTROPHILS # 0.5 10^3/uL (1.5-8.5); PLATELET COUNT, AUTOMATED 18 10^3/uL (150-450)
[2020-03-19 07:39] LABS: WHITE BLOOD COUNT 0.9 10^3/uL (4.0-10.0)
[2020-03-19 07:47] LABS: BLOOD UREA NITROGEN 8 MG/DL (7-18); CALCIUM LEVEL 8.2 MG/DL (8.5-10.1); CARBON DIOXIDE LEVEL 28 MEQ/L (21-32); CHLORIDE LEVEL 106 MEQ/L (98-107); CREATININE FOR GFR 0.55 MG/DL (0.70-1.30); GLOMERULAR FILTRATION RATE > 60.0 (>60); GLUCOSE, FASTING 89 MG/DL (70-100); MAGNESIUM LEVEL 1.8 MG/DL (1.8-2.4); POTASSIUM SERUM 3.3 MEQ/L (3.5-5.1); SODIUM LEVEL 138 MEQ/L (136-145)
[2020-03-19] MEDS ORDERED: MAG SULF 1GM/100ML (MAG RUN) 1 GM in IV 1 EA IV ONE (08:15)
[2020-03-19] MEDS: FLUTICASONE PROP 0.05% NASAL SPRAY 16 GM (FLONASE) SCH (08:55)
--- NOTE | 2020-03-19 08:55 | IPNPDOC ---
Date Seen The patient was seen on 03/19/20. Progress Note Subjective: decreased llq purulent drainage. still tmax 101. no chills no n/v/abd pain. anxious to get back to work, "I need the salary." Objective: PE vitals: Stable General: no distress. AAOx3 nocyanosis. +pallor HEENT: no JVD no thyromegaly tongue midline CVS: RRR, +S1S2 nondisplaced PMI Lungs: Diminished. CTAB no adventitious breath sounds Abdomen: Soft, Non-distended, Non-tender, right upper quadrant ileostomy stoma bag w feces , left upper quadrant with mucous stoma, lateral llq incision w dressing less drainage. less purulence Extremities: No lower extremity edema, No calf tenderness Labs: See below Imaging: CXR 03/16: No active cardiopulmonary disease seen. Slight blunting of the posterior pleural angles. Fzjzhk-I-Vcxe catheter.. CTA chest 03/16: 1. Bilateral small pleural effusions. Right greater than left. 2. There is no aortic dissection or aneurysm. 3. Bilateral hilar lymphadenopathy. 4. There are no pulmonary emboli. 5. No acute pulmonary infiltrates. CTA abdomen / pelvis 03/16: 1. Extensive centrally necrotic bulls eye type metastatic lesions demonstrated throughout the liver measuring up to 5.6 cm in segment 2 of the left lobe. Hepatomegaly. 2. There is mild splenomegaly. No focal abnormalities demonstrated. 3. Locally invasive necrotic mass demonstrated in the left lower quadrant as described above. Small focus of gas in the mass may be related to necrosis although infection is not excluded. 4. 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 5. There is a small amount of free intraperitoneal fluid present. 6. Small fatty umbilical hernia. Clinical correlation to exclude incarceration suggested. 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 supportive care with broad spectrum antibiotics until wound cultures are finalized. ID consulted. due to chemo induced bm suppression, continue with rbc transfusion, neupogen, plt transfusion as needed. attempts to decrease tumor burden with chemo are complicated by recurrent infections, pancytopenia, and sepsis. Until tumor burden is sufficiently suppressed, immunotherapy and surgery for ulcerative colitis with enterocutaneous fistula are not feasible. 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 Await sensitivity results and no fever x 24 hrs prior to dc. pfs consulted to see if pt is eligible for short term disability. VS, I&O, 24H, Fishbone Vital Signs/I&O Vital Signs Date Time Temp Pulse Resp B/P (MAP) Pulse Ox O2 Delivery O2 Flow Rate FiO2 03/19/20 06:07 99.4 85 18 114/68 (83) 96 Room Air I&O- Last 24 Hours up to 6 AM 03/19/20 06:00 Intake Total 1990 ml Output Total 950 ml Balance 1040 ml Laboratory Data 24H LABS Laboratory Tests 2 03/19/20 06:50: Immature Granulocyte % (Auto) 1.1, Neutrophils (%) (Auto) 57.1, Lymphocytes (%) (Auto) 30.8, Monocytes (%) (Auto) 6.6H, Eosinophils (%) (Auto) 3.3H, Basophils (%) (Auto) 1.1H, Neutrophils # (Auto) 0.5L, Lymphocytes # (Auto) 0.3L, Monocytes # (Auto) 0.1, Eosinophils # (Auto) 0.0, Basophils # (Auto) 0.0, Nucleated Red Blood Cells % (auto) 0.0, Immature Platelet Fraction 3.3, Anion Gap 4L, Glomerular Filtration Rate > 60.0, Calcium Level 8.2L, Magnesium Level 1.8 CBC/BMP Laboratory Tests 03/19/20 06:50 Microbiology Microbiology 03/17/20 Fungal Smear, Received Pending 03/17/20 Fungal Culture, Received Pending 03/17/20 Gram Stain - Final, Resulted 03/17/20 Abscess Culture, Resulted Pending 03/17/20 Stool Occult Blood (MOOKIE) - Final, Complete 03/16/20 Respiratory Virus Panel (PCR) (MOOKIE) - Final, Complete 03/16/20 Blood Culture - Preliminary, Resulted No Growth after 48 hours. All Specime... 03/16/20 Urine Culture - Final, Complete 03/16/20 Blood Culture - Preliminary, Resulted No Growth after 48 hours. All Specime... PREETHI WARNER MD Mar 19, 2020 08:55
[2020-03-19] MEDS: DOCUSATE SODIUM 100MG CAPSULE PO SCH (08:56)
[2020-03-19] MEDS: VITAMIN D 1,000 INTERNATIONAL UNITS TABLET PO SCH (08:56)
[2020-03-19] MEDS: FAMOTIDINE 20 MG TAB PO SCH (08:56)
[2020-03-19] MEDS ORDERED: POTASSIUM CHLORIDE 10 MEQ SR TABLET PO ONE (09:00)
[2020-03-19] MEDS: FILGRASTIM 480 MCG/0.8 ML SYRINGE (J1442) SC SCH (10:00)
[2020-03-20] MEDS: DAPTOmycin 500 MG in NS 50 ML IV SCH (00:38)
[2020-03-20] MEDS: NS 1,000 ML IV SCH ×4 (00:39→22:33)
[2020-03-20] MEDS: PIPERACILLIN/TAZOBACTAM SOD 3.375 GM in D5W MINI-BAG PLUS 50 ML IV SCH ×4 (06:01→22:33)
[2020-03-20 06:20] VITALS: BP 113/69
[2020-03-20 07:15] LABS: BASO % 1.4 % (0.0-1.0); EOS % 5.6 % (0.0-3.0); HEMATOCRIT 33.5 % (42.0-52.0); HEMOGLOBIN 10.8 g/dl (13.5-17.5); LYMPH # 0.4 10^3/uL (1.5-5.0); LYMPH % 54.2 % (24.0-44.0); MEAN CORPUSCULAR HEMOGLOBIN 30.8 pg (27.0-33.0); MEAN CORPUSCULAR HGB CONC 32.2 g/dl (32.0-36.5); MEAN CORPUSCULAR VOLUME 95.4 fl (80.0-96.0); MONO # 0.1 10^3/uL (0.0-0.8); MONO % 8.3 % (0.0-5.0); NEUTROPHILS % 24.9 % (36.0-66.0); RED BLOOD COUNT 3.51 10^6/uL (4.30-6.10)
[2020-03-20 07:16] LABS: NEUTROPHILS # 0.2 10^3/uL (1.5-8.5); PLATELET COUNT, AUTOMATED 13 10^3/uL (150-450); WHITE BLOOD COUNT 0.7 10^3/uL (4.0-10.0)
[2020-03-20 07:47] LABS: BLOOD UREA NITROGEN 7 MG/DL (7-18); CALCIUM LEVEL 8.3 MG/DL (8.5-10.1); CARBON DIOXIDE LEVEL 26 MEQ/L (21-32); CHLORIDE LEVEL 106 MEQ/L (98-107); CREATININE FOR GFR 0.58 MG/DL (0.70-1.30); GLOMERULAR FILTRATION RATE > 60.0 (>60); GLUCOSE, FASTING 98 MG/DL (70-100); MAGNESIUM LEVEL 1.9 MG/DL (1.8-2.4); POTASSIUM SERUM 3.5 MEQ/L (3.5-5.1); SODIUM LEVEL 138 MEQ/L (136-145)
--- NOTE | 2020-03-20 09:18 | IPNPDOC ---
Date Seen The patient was seen on 03/20/20. Progress Note Subjective: Still complains of tenderness in the left lower quadrant, especially when palpated, afebrile since 03/18/2020. No complaints of chills. Patient remains neutropenic and thrombocytopenic. He noted a little bit of gingival bleeding when he was brushing his teeth Yesterday. Objective: PE vitals: Stable General: no distress. AAOx3 nocyanosis.. No use of respiratory accessory muscles HEENT: no JVD no thyromegaly tongue midline. No cervical lymphadenopathy. Moist mucous membranes CVS: RRR, +S1S2 nondisplaced PMI Lungs: Diminished. CTAB no adventitious breath sounds Abdomen: Soft, Non-distended, Non-tender, right upper quadrant ileostomy stoma bag w feces , left upper quadrant with mucous stoma, lateral llq incision w dressing less drainage. less purulence Extremities: No lower extremity edema, No calf tenderness Labs: See below Imaging: CXR 03/16: No active cardiopulmonary disease seen. Slight blunting of the posterior pleural angles. Dycsqm-L-Xcmm catheter.. CTA chest 03/16: 1. Bilateral small pleural effusions. Right greater than left. 2. There is no aortic dissection or aneurysm. 3. Bilateral hilar lymphadenopathy. 4. There are no pulmonary emboli. 5. No acute pulmonary infiltrates. CTA abdomen / pelvis 03/16: 1. Extensive centrally necrotic bulls eye type metastatic lesions demonstrated throughout the liver measuring up to 5.6 cm in segment 2 of the left lobe. Hepatomegaly. 2. There is mild splenomegaly. No focal abnormalities demonstrated. 3. Locally invasive necrotic mass demonstrated in the left lower quadrant as described above. Small focus of gas in the mass may be related to necrosis although infection is not excluded. 4. 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 5. There is a small amount of free intraperitoneal fluid present. 6. Small fatty umbilical hernia. Clinical correlation to exclude incarceration suggested. 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 Wound culture grew Escherichia coli and Klebsiella sensitive to Augmentin, amoxicillin and Levaquin. Patient's last fever was 03/18/2020 still on broad-spectrum antibiotics. Await recommendations from infectious disease specialist. Patient is currently suffering from chemotherapy-induced bone marrow suppression with pancytopenia and complaints of gingival bleeding. Platelet pheresis again today until no signs of bleeding. Supportive care with Neupogen and antibiotics for now. VS, I&O, 24H, Fishbone Vital Signs/I&O Vital Signs Date Time Temp Pulse Resp B/P (MAP) Pulse Ox O2 Delivery O2 Flow Rate FiO2 03/20/20 06:20 97.8 79 18 113/69 (84) 99 Room Air I&O- Last 24 Hours up to 6 AM 03/20/20 05:59 Intake Total 2540 ml Output Total 3700 ml Balance -1160 ml Laboratory Data 24H LABS Laboratory Tests 2 03/20/20 07:02: Immature Granulocyte % (Auto) 5.6H, Neutrophils (%) (Auto) 24.9L, Lymphocytes (%) (Auto) 54.2H, Monocytes (%) (Auto) 8.3H, Eosinophils (%) (Auto) 5.6H, Basophils (%) (Auto) 1.4H, Neutrophils # (Auto) 0.2L, Lymphocytes # (Auto) 0.4L, Monocytes # (Auto) 0.1, Eosinophils # (Auto) 0.0, Basophils # (Auto) 0.0, Nucleated Red Blood Cells % (auto) 0.0, Immature Platelet Fraction 3.1, Anion Gap 6L, Glomerular Filtration Rate > 60.0, Calcium Level 8.3L, Magnesium Level 1.9 CBC/BMP Laboratory Tests 03/20/20 07:02 Microbiology Microbiology 03/17/20 Fungal Smear, Received Pending 03/17/20 Fungal Culture, Received Pending 03/17/20 Gram Stain - Final, Complete 03/17/20 Abscess Culture - Final, Complete Escherichia Coli Klebsiella Oxytoca 03/17/20 Stool Occult Blood ([facility]) - Final, Complete 03/16/20 Respiratory Virus Panel (PCR) ([facility]) - Final, Complete 03/16/20 Blood Culture - Preliminary, Resulted No Growth after 72 hours. All specime... 03/16/20 Urine Culture - Final, Complete 03/16/20 Blood Culture - Preliminary, Resulted No Growth after 72 hours. All specime... PREETHI WARNER MD Mar 20, 2020 09:18
[2020-03-20] MEDS: FLUTICASONE PROP 0.05% NASAL SPRAY 16 GM (FLONASE) SCH (09:57)
[2020-03-20] MEDS: DOCUSATE SODIUM 100MG CAPSULE PO SCH (09:58)
[2020-03-20] MEDS: FAMOTIDINE 20 MG TAB PO SCH (09:58)
[2020-03-20] MEDS: VITAMIN D 1,000 INTERNATIONAL UNITS TABLET PO SCH (09:59)
[2020-03-20] MEDS: FILGRASTIM 480 MCG/0.8 ML SYRINGE (J1442) SC SCH (11:38)
--- NOTE | 2020-03-20 13:16 | IPN ---
PROGRESS NOTE DATE: 03/20/2020 SUBJECTIVE: Celso is feeling great. He denies any nausea, vomiting, diarrhea, abdominal pain, fever or chills. He is saying he is to go home, but his pancytopenia is worse. Temperature 97.9, pulse 79, respirations 18, blood pressure 113/69, O2 sat 99% on room air. MEDICATIONS: Day #4 of I.V. Daptomycin and Zosyn. LABORATORY DATA: White count 0.7, hemoglobin 10.8, hematocrit 33.5, platelets 13,000, 54% lymphocytes, 25% neutrophils with an ANC of less than 200. Sodium 138, potassium 3.5, chloride 106, bicarb 26, BUN 7, creatinine 0.58, glucose 98, calcium 8.3. Magnesium 1.9. Abdominal culture was positive for E. coli and Klebsiella; both sensitive to Levofloxacin, Ceftriaxone, Bactrim. Klebsiella only resistant to Ampicillin. Blood cultures remained negative. PHYSICAL EXAMINATION: VITALS: Temperature 97.8, pulse 79, respirations 18, blood pressure 113/69, O2 sat 99% on room air. ABDOMEN: Left lower quadrant fistula with purulent drainage. Drainage has decreased. Some tenderness around the left lower quadrant where there is a sigmoid indurated mass. LUNGS: Clear. No wheezes, rales or rhonchi. HEART: Normal S1, S2. No murmurs. IMPRESSION: 1. Left lower quadrant abscess with fistula: Culture positive for E. coli and Klebsiella. Will continue with I.V. Zosyn. Discontinue I.V. Daptomycin. Patient will remain on I.V. antibiotics until neutropenia resolves. 2. 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 Trujillo's office. Dr. Trujillo was contacted, he agrees with the plan for the patient to remain in the hospital until neutropenia resolves, ANC is 200. 3. Pancytopenia with expected frandy to be over this weekend: Patient remains on Filgrastim and platelets and blood transfusion. PLAN: Discontinue I.V. Daptomycin. Continue I.V. Zosyn. Once the patient is ready for discharge, he can be switched to Bactrim DS one tablet p.o. b.i.d. and would definitely benefit from staying on Bactrim or Levofloxacin depending on oncology's preference while on chemotherapy to prevent recurrent and worsening infection while patient is receiving his chemotherapy every three weeks. Case has been discussed with Dr. Trujillo. [facility]
[2020-03-20 14:00] VITALS: BP 113/68
--- NOTE | 2020-03-20 14:28 | IPN ---
PROGRESS NOTE DATE: 03/19/2020 Patient was seen at 6 p.m. He was resting comfortably in bed. He denied any complaints. Had a good appetite. No nausea, vomiting, or diarrhea. No complaints except for pain the left lower quadrant whenever the fistula mostly is touched. LABS hemoglobin 7.9, hematocrit 26.2, platelets 18, 57% neutrophils with an ANC of 0.5, 30% lymphocytes, 6% monocytes. Sodium 138, potassium 3.3, chloride 106, bicarbonate 28, BUN 8, creatinine 0.5, glucose 89, calcium 8.2, magnesium 1.8. PHYSICAL EXAMINATION: Temperature is 99.2, pulse 80, respirations 18, blood pressure 116/69, oxygen saturation 99% on room air. HEART: Normal S1, S2. No murmurs, rubs, or gallops. LUNGS: Clear. No wheezes, rales, or rhonchi. ABDOMEN: Soft, tender in the left lower quadrant. Purulent discharge was expressed from the fistula with tenderness. No surrounding cellulitis. Mucus stoma in the left upper quadrant and ileostomy in the right upper quadrant. EXTREMITIES: No clubbing, cyanosis, or edema. IMPRESSION: 1. Left lower quadrant abscess from necrotic sigmoid mass. Cultures are still pending. Patient on intravenous (IV) Zosyn and daptomycin. Patient has a previous history of vancomycin-resistant enterococci (VRE). Continue with current antibiotic. 2. Metastatic small-cell neuroendocrine cancer of the sigmoid metastatic to the liver with pancytopenia from chemotherapy. Patient receiving filgrastim, blood transfusion and platelet transfusion. PLAN: Will discuss the case tomorrow with Dr. Villalobos, his oncologist, regarding his management and possible need to remain on antibiotic while he is getting chemotherapy. Will decide on antibiotic de-escalation once cultures are available. [facility]
[2020-03-20 15:00] VITALS: BP 119/70
[2020-03-20 15:17] VITALS: BP 119/72
[2020-03-20 16:17] VITALS: BP 118/71
[2020-03-20 20:40] VITALS: BP 120/71
[2020-03-21] MEDS: PIPERACILLIN/TAZOBACTAM SOD 3.375 GM in D5W MINI-BAG PLUS 50 ML IV SCH ×4 (05:36→22:18)
[2020-03-21] MEDS: NS 1,000 ML IV SCH ×4 (05:36→22:18)
[2020-03-21 06:58] VITALS: BP 103/86
[2020-03-21 07:11] LABS: BASO % 1.4 % (0.0-1.0); EOS % 4.2 % (0.0-3.0); HEMATOCRIT 31.2 % (42.0-52.0); HEMOGLOBIN 9.7 g/dl (13.5-17.5); LYMPH # 0.4 10^3/uL (1.5-5.0); LYMPH % 59.2 % (24.0-44.0); MEAN CORPUSCULAR HEMOGLOBIN 29.6 pg (27.0-33.0); MEAN CORPUSCULAR HGB CONC 31.1 g/dl (32.0-36.5); MEAN CORPUSCULAR VOLUME 95.1 fl (80.0-96.0); MONO # 0.1 10^3/uL (0.0-0.8); MONO % 12.7 % (0.0-5.0); NEUTROPHILS % 21.1 % (36.0-66.0); RED BLOOD COUNT 3.28 10^6/uL (4.30-6.10)
[2020-03-21 07:16] LABS: NEUTROPHILS # 0.2 10^3/uL (1.5-8.5); PLATELET COUNT, AUTOMATED 12 10^3/uL (150-450); WHITE BLOOD COUNT 0.7 10^3/uL (4.0-10.0)
[2020-03-21 07:29] LABS: BLOOD UREA NITROGEN 5 MG/DL (7-18); CALCIUM LEVEL 8.6 MG/DL (8.5-10.1); CARBON DIOXIDE LEVEL 29 MEQ/L (21-32); CHLORIDE LEVEL 106 MEQ/L (98-107); CREATININE FOR GFR 0.56 MG/DL (0.70-1.30); GLOMERULAR FILTRATION RATE > 60.0 (>60); GLUCOSE, FASTING 91 MG/DL (70-100); MAGNESIUM LEVEL 1.8 MG/DL (1.8-2.4); POTASSIUM SERUM 3.4 MEQ/L (3.5-5.1); SODIUM LEVEL 139 MEQ/L (136-145)
--- NOTE | 2020-03-21 08:59 | IPNPDOC ---
Date Seen The patient was seen on 03/21/20. Progress Note Subjective: , No fever, chills overnight, has come bleeding when he brushes his teeth. Platelet count is 13,000, status post platelet transfusion Denies chest pressure, tightness, shortness of breath, cough, dysuria, urgency, frequency Objective: PE vitals: Stable General: Comfortable, no distress. No pallor HEENT: Moist mucous membranes. No JVD CVS: RRR, +S1S2 Lungs: CTAB no adventitious breath sounds Abdomen: Soft, Non-distended, Non-tender, right upper quadrant ileostomy stoma bag w feces , left upper quadrant with mucous stoma, lateral llq incision serosanguineous drainage Extremities: No lower extremity edema, No calf tenderness Labs: See below Imaging: CXR 03/16: No active cardiopulmonary disease seen. Slight blunting of the posterior pleural angles. Vowhzw-A-Jirw catheter.. CTA chest 03/16: 1. Bilateral small pleural effusions. Right greater than left. 2. There is no aortic dissection or aneurysm. 3. Bilateral hilar lymphadenopathy. 4. There are no pulmonary emboli. 5. No acute pulmonary infiltrates. CTA abdomen / pelvis 03/16: 1. Extensive centrally necrotic bulls eye type metastatic lesions demonstrated throughout the liver measuring up to 5.6 cm in segment 2 of the left lobe. Hepatomegaly. 2. There is mild splenomegaly. No focal abnormalities demonstrated. 3. Locally invasive necrotic mass demonstrated in the left lower quadrant as described above. Small focus of gas in the mass may be related to necrosis although infection is not excluded. 4. 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 5. There is a small amount of free intraperitoneal fluid present. 6. Small fatty umbilical hernia. Clinical correlation to exclude incarceration suggested. 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 Lara patient's medical oncologist in [place] [phone], patient will be continued on chemotherapy once he is optimized. Continue with Neupogen and platelet transfusions rbc transfusions as needed antibiotics for infection and outpatient follow-up with medical oncology and colorectal surgery once he is stable. ID consulted and will decide on prophylactic antibiotics due to recurrent infection from immunosuppression after chemotherapy VS, I&O, 24H, Fishbone Vital Signs/I&O Vital Signs Date Time Temp Pulse Resp B/P (MAP) Pulse Ox O2 Delivery O2 Flow Rate FiO2 03/21/20 06:58 98.0 82 20 103/86 (92) 97 Room Air 03/20/20 16:17 96.0 I&O- Last 24 Hours up to 6 AM 03/21/20 06:00 Intake Total 6111 ml Output Total 3650 ml Balance 2461 ml Laboratory Data 24H LABS Laboratory Tests 2 03/21/20 06:43: Immature Granulocyte % (Auto) 1.4, Neutrophils (%) (Auto) 21.1L, Lymphocytes (%) (Auto) 59.2H, Monocytes (%) (Auto) 12.7H, Eosinophils (%) (Auto) 4.2H, Basophils (%) (Auto) 1.4H, Neutrophils # (Auto) 0.2L, Lymphocytes # (Auto) 0.4L, Monocytes # (Auto) 0.1, Eosinophils # (Auto) 0.0, Basophils # (Auto) 0.0, Nucleated Red Blood Cells % (auto) 0.0, Anion Gap 4L, Glomerular Filtration Rate > 60.0, Calcium Level 8.6, Magnesium Level 1.8 CBC/BMP Laboratory Tests 03/21/20 06:43 Microbiology Microbiology 03/17/20 Fungal Smear, Received Pending 03/17/20 Fungal Culture, Received Pending 03/17/20 Gram Stain - Final, Complete 03/17/20 Abscess Culture - Final, Complete Escherichia Coli Klebsiella Oxytoca 03/17/20 Stool Occult Blood ([facility]) - Final, Complete 03/16/20 Respiratory Virus Panel (PCR) ([facility]) - Final, Complete 03/16/20 Blood Culture - Preliminary, Resulted No Growth after 72 hours. All specime... 03/16/20 Urine Culture - Final, Complete 03/16/20 Blood Culture - Preliminary, Resulted No Growth after 72 hours. All specime... PREETHI WARNER MD Mar 21, 2020 08:59
[2020-03-21] MEDS: FILGRASTIM 480 MCG/0.8 ML SYRINGE (J1442) SC SCH (09:52)
[2020-03-21] MEDS: VITAMIN D 1,000 INTERNATIONAL UNITS TABLET PO SCH (09:52)
[2020-03-21] MEDS: FAMOTIDINE 20 MG TAB PO SCH (09:53)
[2020-03-21] MEDS: DOCUSATE SODIUM 100MG CAPSULE PO SCH (09:53)
[2020-03-21] MEDS: FLUTICASONE PROP 0.05% NASAL SPRAY 16 GM (FLONASE) SCH (09:53)
[2020-03-21 14:00] VITALS: BP 123/61
[2020-03-21 15:05] VITALS: BP 106/66
[2020-03-21 15:20] VITALS: BP 110/66
[2020-03-21 16:45] VITALS: BP 106/66
[2020-03-21 20:00] VITALS: BP 110/65
[2020-03-22] VITALS (7 sets, daily range): BP systolic 110–120; BP diastolic 66–72
[2020-03-22] MEDS: NS 1,000 ML IV SCH (05:48)
[2020-03-22] MEDS: PIPERACILLIN/TAZOBACTAM SOD 3.375 GM in D5W MINI-BAG PLUS 50 ML IV SCH ×3 (05:48→21:24)
[2020-03-22 08:13] LABS: BASO % 1.3 % (0.0-1.0); EOS % 2.6 % (0.0-3.0); HEMATOCRIT 28.7 % (42.0-52.0); HEMOGLOBIN 9.2 g/dl (13.5-17.5); LYMPH # 0.4 10^3/uL (1.5-5.0); LYMPH % 48.1 % (24.0-44.0); MEAN CORPUSCULAR HEMOGLOBIN 30.6 pg (27.0-33.0); MEAN CORPUSCULAR HGB CONC 32.1 g/dl (32.0-36.5); MEAN CORPUSCULAR VOLUME 95.3 fl (80.0-96.0); MONO # 0.1 10^3/uL (0.0-0.8); MONO % 16.9 % (0.0-5.0); NEUTROPHILS % 31.1 % (36.0-66.0); RED BLOOD COUNT 3.01 10^6/uL (4.30-6.10)
[2020-03-22 08:16] LABS: NEUTROPHILS # 0.2 10^3/uL (1.5-8.5); PLATELET COUNT, AUTOMATED 14 10^3/uL (150-450); WHITE BLOOD COUNT 0.8 10^3/uL (4.0-10.0)
[2020-03-22 08:35] LABS: BLOOD UREA NITROGEN 5 MG/DL (7-18); CALCIUM LEVEL 8.2 MG/DL (8.5-10.1); CARBON DIOXIDE LEVEL 27 MEQ/L (21-32); CHLORIDE LEVEL 106 MEQ/L (98-107); GLOMERULAR FILTRATION RATE > 60.0 (>60); GLUCOSE, FASTING 89 MG/DL (70-100); MAGNESIUM LEVEL 1.7 MG/DL (1.8-2.4); POTASSIUM SERUM 3.7 MEQ/L (3.5-5.1); SODIUM LEVEL 140 MEQ/L (136-145)
[2020-03-22] MEDS: FAMOTIDINE 20 MG TAB PO SCH (09:50)
[2020-03-22] MEDS: FLUTICASONE PROP 0.05% NASAL SPRAY 16 GM (FLONASE) SCH (09:51)
[2020-03-22] MEDS: FILGRASTIM 480 MCG/0.8 ML SYRINGE (J1442) SC SCH (09:51)
[2020-03-22] MEDS: VITAMIN D 1,000 INTERNATIONAL UNITS TABLET PO SCH (09:51)
[2020-03-22] MEDS: DOCUSATE SODIUM 100MG CAPSULE PO SCH (09:51)
--- NOTE | 2020-03-22 10:12 | IPNPDOC ---
Date Seen The patient was seen on 03/22/20. Progress Note Subjective: , Still with gum bleeding when he brushes his teeth. Patient had 100.0. Temperature last night. Denies chest pain, pressure, tightness, shortness of breath, nausea, vomiting, dysuria, urgency, frequency is noted. Some serous drainage IN The left lower quadrant. No significant tenderness. Had to empty his ostomy bag twice In the middle the night Objective: PE vitals: Stable General: No distress. Speaks in full sentences HEENT: No thyromegaly Moist mucous membranes. No JVD CVS: RRR, +S1S2 , no carotid bruit Lungs: CTAB no adventitious breath sounds. Air entry is equal Abdomen: Soft, Non-distended, Non-tender, right upper quadrant ileostomy stoma bag w feces , left upper quadrant with mucous stoma, lateral llq incision serous drainage Extremities: No lower extremity edema, No calf tenderness Labs: See below Imaging: CXR 03/16: No active cardiopulmonary disease seen. Slight blunting of the posterior pleural angles. Ixqaae-A-Amsp catheter.. CTA chest 03/16: 1. Bilateral small pleural effusions. Right greater than left. 2. There is no aortic dissection or aneurysm. 3. Bilateral hilar lymphadenopathy. 4. There are no pulmonary emboli. 5. No acute pulmonary infiltrates. CTA abdomen / pelvis 03/16: 1. Extensive centrally necrotic bulls eye type metastatic lesions demonstrated throughout the liver measuring up to 5.6 cm in segment 2 of the left lobe. He patomegaly. 2. There is mild splenomegaly. No focal abnormalities demonstrated. 3. Locally invasive necrotic mass demonstrated in the left lower quadrant as described above. Small focus of gas in the mass may be related to necrosis although infection is not excluded. 4. 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 5. There is a small amount of free intraperitoneal fluid present. 6. Small fatty umbilical hernia. Clinical correlation to exclude incarceration suggested. 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 Platelet transfusion, status post RBC transfusion and still on Neupogen And antibiotics . No changes in management today. Per his medical oncologist. Continue with present management and outpatient follow-up with him for repeat chemotherapy once he is functionally stable. ID is considering empiric antibiotics due to her recurrent infections after chemotherapy. VS, I&O, 24H, Fishbone Vital Signs/I&O Vital Signs Date Time Temp Pulse Resp B/P (MAP) Pulse Ox O2 Delivery O2 Flow Rate FiO2 03/22/20 06:31 97.7 75 20 111/66 (81) 99 Room Air 03/20/20 16:17 96.0 I&O- Last 24 Hours up to 6 AM 03/22/20 06:00 Intake Total 1290 ml Output Total 3300 ml Balance -2010 ml Laboratory Data 24H LABS Laboratory Tests 2 03/22/20 07:44: Immature Granulocyte % (Auto) 0.0, Neutrophils (%) (Auto) 31.1L, Lymphocytes (%) (Auto) 48.1H, Monocytes (%) (Auto) 16.9H, Eosinophils (%) (Auto) 2.6, Basophils (%) (Auto) 1.3H, Neutrophils # (Auto) 0.2L, Lymphocytes # (Auto) 0.4L, Monocytes # (Auto) 0.1, Eosinophils # (Auto) 0.0, Basophils # (Auto) 0.0, Nucleated Red Blood Cells % (auto) 0.0, Immature Platelet Fraction 2.7, Anion Gap 7L, Glomerular Filtration Rate > 60.0, Calcium Level 8.2L, Magnesium Level 1.7L CBC/BMP Laboratory Tests 03/22/20 07:44 Microbiology Microbiology 03/17/20 Fungal Smear, Received Pending 03/17/20 Fungal Culture, Received Pending 03/17/20 Gram Stain - Final, Complete 03/17/20 Abscess Culture - Final, Complete Escherichia Coli Klebsiella Oxytoca 03/17/20 Stool Occult Blood ([facility]) - Final, Complete 03/16/20 Respiratory Virus Panel (PCR) ([facility]) - Final, Complete 03/16/20 Blood Culture - Final, Complete NO GROWTH AFTER 5 DAYS 03/16/20 Urine Culture - Final, Complete 03/16/20 Blood Culture - Final, Complete NO GROWTH AFTER 5 DAYS PREETHI WARNER MD Mar 22, 2020 10:10
[2020-03-22] MEDS ORDERED: POTASSIUM CHLORIDE 10 MEQ SR TABLET PO ONE (11:00)
[2020-03-22] MEDS ORDERED: MAG SULF 1GM/100ML (MAG RUN) 1 GM in IV 1 EA IV ONE (11:00)
[2020-03-23] MEDS: PIPERACILLIN/TAZOBACTAM SOD 3.375 GM in D5W MINI-BAG PLUS 50 ML IV SCH ×3 (02:17→15:21)
[2020-03-23 06:00] VITALS: BP 117/70
[2020-03-23 07:37] LABS: HEMATOCRIT 30.4 % (42.0-52.0); HEMOGLOBIN 9.6 g/dl (13.5-17.5); MEAN CORPUSCULAR HEMOGLOBIN 29.9 pg (27.0-33.0); MEAN CORPUSCULAR HGB CONC 31.6 g/dl (32.0-36.5); MEAN CORPUSCULAR VOLUME 94.7 fl (80.0-96.0); RED BLOOD COUNT 3.21 10^6/uL (4.30-6.10); WHITE BLOOD COUNT 1.2 10^3/uL (4.0-10.0)
[2020-03-23 07:38] LABS: PLATELET COUNT, AUTOMATED 15 10^3/uL (150-450)
[2020-03-23 08:01] LABS: ATYPICAL LYMPH 2 % (0-5); BASOPHILS 1 % (0-1); EOSINOPHILS 2 % (0-3); LYMPHOCYTES 40 % (16-44); METAMYELOCYTES 1 % (0-0); MONOCYTES 10 % (0-5); NEUTROPHILS 37 % (28-66)
[2020-03-23 08:02] LABS: HYPOCHROMASIA 2+; PLATELET ESTIMATE MARKED DECREASE (NORMAL)
--- NOTE | 2020-03-23 08:03 | IPNPDOC ---
Date Seen The patient was seen on 03/23/20. Progress Note Subjective: c/o serous drainage in llq. no fever x 48hrs. denies chills. less pain in llq. ambulating well, tolerating diet. no sob cough or n/v. gingival bleeding plts 14k. Objective: PE vitals: Stable General: AAOx3 no distress HEENT: No thyromegaly Moist mucous membranes. No JVD CVS: RRR, +S1S2 , no carotid bruit Lungs: CTAB no adventitious breath sounds. Abdomen: Soft, Non-distended, Non-tender, right upper quadrant ileostomy stoma bag w feces , left upper quadrant with mucous stoma, lateral llq incision serous drainage Extremities: No lower extremity edema, No calf tenderness Labs: See below Imaging: CXR 03/16: No active cardiopulmonary disease seen. Slight blunting of the posterior pleural angles. Ppmfjz-M-Hlea catheter.. CTA chest 03/16: 1. Bilateral small pleural effusions. Right greater than left. 2. There is no aortic dissection or aneurysm. 3. Bilateral hilar lymphadenopathy. 4. There are no pulmonary emboli. 5. No acute pulmonary infiltrates. CTA abdomen / pelvis 03/16: 1. Extensive centrally necrotic bulls eye type metastatic lesions demonstrated throughout the liver measuring up to 5.6 cm in segment 2 of the left lobe. Hepatomegaly. 2. There is mild splenomegaly. No focal abnormalities demonstrated. 3. Locally invasive necrotic mass demonstrated in the left lower quadrant as described above. Small focus of gas in the mass may be related to necrosis although infection is not excluded. 4. 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 5. There is a small amount of free intraperitoneal fluid present. 6. Small fatty umbilical hernia. Clinical correlation to exclude incarceration suggested. Assessment: Sepsis -due to recurrent intraabdominal abscess s/p chemo -on iv zosyn. daptomycin discontinued -ID consulted-may recommend prophylactic abx Intraabdominal Abscess-liver necrotic area, necrotic metastatic lesions and to the left lower quadrant abdominal wall/ LLQ abscess w E.coli and klebsiella -afebrile -wbc improving w neupogen. -on iv zosyn. defer to ID if po levaquin is sufficiend -dc home once wbc stable Chemotherapy-induced pancytopenia/bone marrow suppression -symptomatic anemia requiring 3units rbc transfusion -thrombocytopneia requiring platelet transfusion -neutropenia- requiring neupogen -improving wbc . 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 Lopes, continue w supportive care for now, transfusions, neupogen and antibiotics. last CT abd controlled tumor burden. 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 disposition: 1-2 more days until neutropenia resolves. VS, I&O, 24H, Fishbone Vital Signs/I&O Vital Signs Date Time Temp Pulse Resp B/P (MAP) Pulse Ox O2 Delivery O2 Flow Rate FiO2 03/23/20 06:00 98.6 86 17 117/70 (86) 95 Room Air 03/20/20 16:17 96.0 I&O- Last 24 Hours up to 6 AM 03/23/20 06:00 Intake Total 4320 ml Output Total 4750 ml Balance -430 ml Laboratory Data 24H LABS Laboratory Tests 2 03/23/20 07:25: Immature Granulocyte % (Auto) , Neutrophils (%) (Auto) , Neutrophils # (Auto) , Nucleated Red Blood Cells % (auto) 0.0 CBC/BMP Laboratory Tests 03/23/20 07:25 Microbiology Microbiology 03/17/20 Fungal Smear, Received Pending 03/17/20 Fungal Culture, Received Pending 03/17/20 Gram Stain - Final, Complete 03/17/20 Abscess Culture - Final, Complete Escherichia Coli Klebsiella Oxytoca 03/17/20 Stool Occult Blood ([facility]) - Final, Complete 03/16/20 Respiratory Virus Panel (PCR) ([facility]) - Final, Complete 03/16/20 Blood Culture - Final, Complete NO GROWTH AFTER 5 DAYS 03/16/20 Urine Culture - Final, Complete 03/16/20 Blood Culture - Final, Complete NO GROWTH AFTER 5 DAYS PREETHI WARNER MD Mar 23, 2020 08:03
[2020-03-23 08:04] LABS: BLOOD UREA NITROGEN 7 MG/DL (7-18); CARBON DIOXIDE LEVEL 31 MEQ/L (21-32); CHLORIDE LEVEL 104 MEQ/L (98-107); CREATININE FOR GFR 0.69 MG/DL (0.70-1.30); GLOMERULAR FILTRATION RATE > 60.0 (>60); GLUCOSE, FASTING 89 MG/DL (70-100); MAGNESIUM LEVEL 1.9 MG/DL (1.8-2.4); POTASSIUM SERUM 3.8 MEQ/L (3.5-5.1); SODIUM LEVEL 137 MEQ/L (136-145)
[2020-03-23] MEDS: FAMOTIDINE 20 MG TAB PO SCH (09:23)
[2020-03-23] MEDS: VITAMIN D 1,000 INTERNATIONAL UNITS TABLET PO SCH (09:23)
[2020-03-23] MEDS: DOCUSATE SODIUM 100MG CAPSULE PO SCH (09:24)
[2020-03-23] MEDS: FLUTICASONE PROP 0.05% NASAL SPRAY 16 GM (FLONASE) SCH (09:24)
[2020-03-23 10:49] VITALS: BP 116/67
[2020-03-23] MEDS: FILGRASTIM 480 MCG/0.8 ML SYRINGE (J1442) SC SCH (10:53)
[2020-03-23 11:05] VITALS: BP 116/67
[2020-03-23 11:51] VITALS: BP 115/67
[2020-03-23 13:07] VITALS: BP 116/68
[2020-03-23] MEDS: ACETAMINOPHEN TAB 650MG DOSE (2X325MG) PO PRN (13:15)
[2020-03-23] MEDS ORDERED: LevoFLOXacin 750 MG TABLET PO SCH (18:00)
[2020-03-23] MEDS ORDERED: LEVO750T13 PO (18:26)
[2020-03-23] MEDS ORDERED: BACI1CAP PO (18:26)
[2020-03-23 22:00] VITALS: BP 114/67
[2020-03-24 06:00] VITALS: BP 120/65
[2020-03-24 08:33] LABS: HEMATOCRIT 30.7 % (42.0-52.0); HEMOGLOBIN 9.6 g/dl (13.5-17.5); MEAN CORPUSCULAR HEMOGLOBIN 29.6 pg (27.0-33.0); MEAN CORPUSCULAR HGB CONC 31.3 g/dl (32.0-36.5); MEAN CORPUSCULAR VOLUME 94.8 fl (80.0-96.0); RED BLOOD COUNT 3.24 10^6/uL (4.30-6.10)
[2020-03-24 08:37] LABS: PLATELET COUNT, AUTOMATED 14 10^3/uL (150-450)
[2020-03-24] MEDS: DOCUSATE SODIUM 100MG CAPSULE PO SCH (08:46)
[2020-03-24] MEDS: FLUTICASONE PROP 0.05% NASAL SPRAY 16 GM (FLONASE) SCH (08:46)
[2020-03-24] MEDS: FAMOTIDINE 20 MG TAB PO SCH (08:46)
[2020-03-24] MEDS: VITAMIN D 1,000 INTERNATIONAL UNITS TABLET PO SCH (08:46)
[2020-03-24 09:08] LABS: ALBUMIN 2.8 GM/DL (3.2-5.2); ALT/SGPT 23 U/L (12-78); BILIRUBIN,TOTAL 0.3 MG/DL (0.2-1.0); BLOOD UREA NITROGEN 7 MG/DL (7-18); CALCIUM LEVEL 9.1 MG/DL (8.5-10.1); CARBON DIOXIDE LEVEL 29 MEQ/L (21-32); CHLORIDE LEVEL 102 MEQ/L (98-107); CREATININE FOR GFR 0.68 MG/DL (0.70-1.30); GLOMERULAR FILTRATION RATE > 60.0 (>60); GLUCOSE, FASTING 131 MG/DL (70-100); POTASSIUM SERUM 3.8 MEQ/L (3.5-5.1); SODIUM LEVEL 136 MEQ/L (136-145); TOTAL PROTEIN 6.9 GM/DL (6.4-8.2)
--- NOTE | 2020-03-24 18:25 | DS.PDOC ---
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 Patient reports that he was noted to have a fever of 99.9 Fahrenheit and had taken Tylenol. Patient reported that he was having an increased heart rate and chills. Patient reported that his visiting home health aide had reported that he had decreased sounds in his lung bases. Patient reports some shortness of breath, but denies any cough, chest pain or palpitations. Patient reports that he has an ileostomy and mucous stoma, both of which have output that has not changed significantly. Patient denies any abdominal pain. Reports that he does have some output from his rectum, although not significant. Denies any urinary discomfort. Patient recently was found to be anemic and was requiring 1 unit PRBC transfusion on Monday. Patient receives all his care at [facility] where he has received his oncologic evaluation and surgical intervention. HOSPITAL COURSE: Dr. Villalobos, patient's oncologist was called on admission who helped discuss patient's history, current treatment plan. He has a recurrent intraabdominal abscess s/p chemo with long standing fistula which has complicated care. Here necrotic metastatic lesions and to the left lower quadrant abdominal wall were seen. He was septic, treated initially with IV abx and neupogen. E. coli and Klebsiella identified on CX, NG on BCx on several sets. HE was on IV zosyn, daptomycin discontinued. ID consulted, recommending 10 days PO levofloxacin to continue when ok for discharge. We treated chemotherapy-induced pancytopenia/bone marrow suppression, symptomatic anemia, thrombocytopenia with 4 U PRBC, 6 PLTs this admission. Improving wbc and later discussed with patient's oncologist who requested repeat CBC with diff ordered/script be given for 03/26/20 and results to be faxed to his office to review. 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 Lopes, continue w supportive care for now, transfusions and antibiotics. Once improved functional capacity and abx completed, return for chemo. By 03/24/20 patient was much improved. He was discharged home with f/u with o/p oncology, will need repeat CBC on 03/26/20 with results to be faxed to Dr. Lopes's office. At discharge, he denied chest pain, fevers, chills, n/v/d. 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; involving 2 drainage catheters, complicated by colonic abscess, fistula Ulcerative colitis; previously was on Entyvio Past Surgical History: Small bowel obstruction with ileostomy ascending and transverse colon resection 02/09/2020 - His descending and sigmoid colon are still present and there is a mucous stoma at the proximal site of his descending colon Vasectomy 2010 Right wrist fracture as a child Family History: - Mother with a history of elevated blood pressure in father with a history of diverticulosis, BPH and hypothyroidism Social History: - Denies the use of alcohol, tobacco or illicit drugs - Denies recent travel or sick contacts - Lives with and 2 children - 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 DISCHARGE MEDICATIONS: Please see below. PE: VS: Please see below General: AAOx3 no distress HEENT: No thyromegaly Moist mucous membranes. No JVD CVS: RRR, +S1S2 , no carotid bruit Lungs: CTAB no adventitious breath sounds. Abdomen: Soft, Non-distended, Non-tender, right upper quadrant ileostomy stoma bag w feces , left upper quadrant with mucous stoma, lateral llq incision serous drainage Extremities: No lower extremity edema, No calf tenderness Labs: See below Imaging: CXR 03/16: No active cardiopulmonary disease seen. Slight blunting of the posterior pleural angles. Gdqois-R-Pdyu catheter.. CTA chest 03/16: 1. Bilateral small pleural effusions. Right greater than left. 2. There is no aortic dissection or aneurysm. 3. Bilateral hilar lymphadenopathy. 4. There are no pulmonary emboli. 5. No acute pulmonary infiltrates. CTA abdomen / pelvis 03/16: 1. Extensive centrally necrotic bulls eye type metastatic lesions demonstrated throughout the liver measuring up to 5.6 cm in segment 2 of the left lobe. Hepatomegaly. 2. There is mild splenomegaly. No focal abnormalities demonstrated. 3. Locally invasive necrotic mass demonstrated in the left lower quadrant as described above. Small focus of gas in the mass may be related to necrosis although infection is not excluded. 4. 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 5. There is a small amount of free intraperitoneal fluid present. 6. Small fatty umbilical hernia. Clinical correlation to exclude incarceration suggested. ASSESSMENT/PLAN: Recurrent intraabdominal abscess s/p chemo, resolved sepsis -Long standing abscess with fistula -Necrotic metastatic lesions and to the left lower quadrant abdominal wall -WBC improving with neupogen and currently 2, afebrile -E. coli and Klebsiella identified on CX, NG on BCx on several sets -Was on IV zosyn, daptomycin discontinued -ID consulted, recommending 10 days PO levofloxacin to continue -Made Dr. Villalobos, oncologist, aware Chemotherapy-induced pancytopenia/bone marrow suppression with symptomatic anemia, thrombocytopenia -S/p 4 U PRBC, 6 PLTs this admission -S/p neupogen -Improving wbc. Discussed with patient's oncologist who requested repeat CBC with diff ordered/script be given for 03/26/20 and results to be faxed to his office to review. 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 Lopes, continue w supportive care for now, transfusions and antibiotics. Last CT abd controlled tumor burden. 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 DISPOSITION: D/c home today with f/u with oncology, PCP. CBC with diff script given for patient to have drawn on 03/26/20 with results to be faxed to oncologist's office to review TIME SPENT ON DISCHARGE: Greater than 30 minutes. Vital Signs/I&Os Vital Signs Date Time Temp Pulse Resp B/P (MAP) Pulse Ox O2 Delivery O2 Flow Rate FiO2 03/24/20 06:00 98.6 77 16 120/65 (83) 96 03/23/20 22:00 Room Air 03/20/20 16:17 96.0 I&O- Last 24 Hours up to 6 AM 03/24/20 06:00 Intake Total 1000 ml Output Total 2525 ml Balance -1525 ml Laboratory Data Labs 24H Laboratory Tests 2 03/24/20 08:17: Nucleated Red Blood Cells % (auto) 0.0, Immature Platelet Fraction 5.7, Anion Gap 5L, Glomerular Filtration Rate > 60.0, Calcium Level 9.1, Total Bilirubin 0.3, Aspartate Amino Transf (AST/SGOT) 11, Alanine Aminotransferase (ALT/SGPT) 23, Alkaline Phosphatase 242H, Total Protein 6.9, Albumin 2.8L, Albumin/Globulin Ratio 0.7 CBC/BMP Laboratory Tests 03/24/20 08:17 Microbiology Microbiology 03/17/20 Fungal Smear, Received Pending 03/17/20 Fungal Culture, Received Pending 03/17/20 Gram Stain - Final, Complete 03/17/20 Abscess Culture - Final, Complete Escherichia Coli Klebsiella Oxytoca 03/17/20 Stool Occult Blood (MOOKIE) - Final, Complete 03/16/20 Respiratory Virus Panel (PCR) (MOOKIE) - Final, Complete 03/16/20 Blood Culture - Final, Complete NO GROWTH AFTER 5 DAYS 03/16/20 Urine Culture - Final, Complete 03/16/20 Blood Culture - Final, Complete NO GROWTH AFTER 5 DAYS Discharge Medications Scheduled Bacillus Coagulans (Bacid with Lactospore) 1 Each Capsule, 1 CAP PO WM Carboplatin (Carboplatin) 10 Mg/1 Ml Vial, Unknown Dose IV ASDIRECTED, (Reported) EVERY 3 WEEKS AT ONCOLOGY Cholecalciferol (Vitamin D3) (Vitamin D3) 1,000 Unit Tablet, 2,000 UNITS PO DAILY, (Reported) Docusate Sodium (Colace) 100 Mg Capsule, 200 MG PO DAILY, (Reported) Etoposide Phosphate (Etopophos) 100 Mg Vial, Unknown Dose IV ASDIRECTED, (Reported) EVERY 3 WEEKS AT ONCOLOGY Famotidine (Famotidine) 40 Mg Tablet, 40 MG PO DAILY, (Reported) Fluticasone Propionate (Flonase Allergy Relief) 9.9 Ml [place].susp, 1 SPRAY NA DAILY, (Reported) Levofloxacin (Levofloxacin) 750 Mg Tablet, 750 MG PO DAILY@06 Scheduled PRN Ondansetron HCl (Ondansetron HCl) 4 Mg Tablet, 4 MG PO Q6HP PRN for NAUSEA OR VOMITING, (Reported) Prochlorperazine Maleate (Prochlorperazine Maleate) 10 Mg Tablet, 10 MG PO Q6H PRN for NAUSEA OR VOMITING, (Reported) Allergies Coded Allergies: azathioprine (Verified Allergy, Severe, pancreatitis, 03/16/20) Kenya Lai MD Mar 24, 2020 18:25
== END 2020-03-24 11:55 | disposition home or self-care (01) | DRG 871 ==
LOC: M ED 15:44 → M ED INP 22:41 → ENRESERV 23:27 → M PCU 03-17 00:07 → M MS5PR 03-18 14:40
PROVIDERS: ADMIT Internal Medicine; ATTEND Internal Medicine
PROC: 30233N1 Transfusion of Nonautologous Red Blood Cells into Peripheral Vein, Percutaneous Approach (ICD-10-PCS; principal; 2020-03-17)
PROC: 30233R1 Transfusion of Nonautologous Platelets into Peripheral Vein, Percutaneous Approach (ICD-10-PCS; 2020-03-19)
DX: A41.9 Sepsis, unspecified organism (principal); K65.1 Peritoneal abscess; D61.810 Antineoplastic chemotherapy induced pancytopenia; E87.1 Hypo-osmolality and hyponatremia; C79.89 Secondary malignant neoplasm of other specified sites; C78.7 Secondary malignant neoplasm of liver and intrahepatic bile duct; C18.7 Malignant neoplasm of sigmoid colon; K51.913 Ulcerative colitis, unspecified with fistula; D64.9 Anemia, unspecified; D69.6 Thrombocytopenia, unspecified; Z79.899 Other long term (current) drug therapy; Z88.8 Allergy status to other drugs, medicaments and biological substances; B96.29 Other Escherichia coli [E. coli] as the cause of diseases classified elsewhere; B96.1 Klebsiella pneumoniae [K. pneumoniae] as the cause of diseases classified elsewhere

== ENCOUNTER 2020-04-02 16:27 | Emergency (ER) | payer OTHER ==
[~2020-04-02] VITALS: Ht 177.8 cm; Wt 80.1 kg
[~2020-04-02 16:27] MED LIST changes: +ATIV1TAB10 PO; +BACI1CAP PO; +CARB450I12; +CARB450I12 IV; +COLA100C5 PO; +D31000TA2 PO; +ETOP50CA2; +FLON1SPR; +FLON1SPR NARES; +LEVO750T13 PO; +ONDA-83 PO; +PROC10TA4 PO; +THERTAB52 PO; +[UNRECOGNIZED DRUG - CODE] IV
[2020-04-02] MEDS ORDERED: SULF1TAB93 (16:50)
[2020-04-02] MEDS ORDERED: NS 1,000 ML IV ONE ×2 (17:30→22:45)
[2020-04-02 18:39] LABS: RSV AMPLIFICATION NEGATIVE (NEGATIVE)
[2020-04-02 18:39] LABS: BASO % 0.2 % (0.0-1.0); EOS % 0.2 % (0.0-3.0); HEMATOCRIT 24.3 % (42.0-52.0); HEMOGLOBIN 7.9 g/dl (13.5-17.5); LYMPH # 0.7 10^3/uL (1.5-5.0); MEAN CORPUSCULAR HGB CONC 32.5 g/dl (32.0-36.5); MEAN CORPUSCULAR VOLUME 92.4 fl (80.0-96.0); MONO # 0.7 10^3/uL (0.0-0.8); MONO % 13.2 % (0.0-5.0); NEUTROPHILS # 3.7 10^3/uL (1.5-8.5); NEUTROPHILS % 72.8 % (36.0-66.0); RED BLOOD COUNT 2.63 10^6/uL (4.30-6.10)
[2020-04-02 18:41] LABS: PLATELET COUNT, AUTOMATED 29 10^3/uL (150-450)
[2020-04-02 19:20] LABS: ALBUMIN 2.8 GM/DL (3.2-5.2); ALT/SGPT 20 U/L (12-78); BILIRUBIN,TOTAL 0.5 MG/DL (0.2-1.0); BLOOD UREA NITROGEN 10 MG/DL (7-18); CALCIUM LEVEL 8.5 MG/DL (8.5-10.1); CARBON DIOXIDE LEVEL 25 MEQ/L (21-32); CHLORIDE LEVEL 99 MEQ/L (98-107); CK-MB VALUE MASS < 1.0 NG/ML (<3.6); CPK CREATINE PHOSPHOKINASE 91 U/L (39-308); CREATININE FOR GFR 0.67 MG/DL (0.70-1.30); GLOMERULAR FILTRATION RATE > 60.0 (>60); GLUCOSE, FASTING 102 MG/DL (70-100); LDH LACTATE DEHYDROGENASE 670 U/L (87-241); POTASSIUM SERUM 4.1 MEQ/L (3.5-5.1); SODIUM LEVEL 132 MEQ/L (136-145); TOTAL PROTEIN 6.5 GM/DL (6.4-8.2); TROPONIN I < 0.02 NG/ML (< 0.10)
--- NOTE | 2020-04-02 19:54 | REPVR ---
PROCEDURE INFORMATION: Exam: XR Chest, 1 View Exam date and time: 04/02/2020 5:17 PM Age: 44 years old Clinical indication: Chest pain; Type not specified; Additional info: Coronavirus workup TECHNIQUE: Imaging protocol: XR of the chest Views: 1 view. COMPARISON: CT ANGIO CHEST 03/16/2020 6:09 PM FINDINGS: Tubes, catheters and devices: There is a right internal jugular Port-A-Cath extending to the cavoatrial junction. Lungs: There is decreased inflation of the lungs. No focal infiltrates are seen. Pleural space: Unremarkable. No pleural effusion. No pneumothorax. Heart/Mediastinum: Unremarkable. No cardiomegaly. Bones/joints: Unremarkable. IMPRESSION: 1. Right Port-A-Cath to the cavoatrial junction which is similar to 03/16/2020. 2. Otherwise negative poor inspiratory chest. Electronically signed by: Lauro Jacinto On 04/02/2020 19:54:24 PM
[2020-04-02] MEDS: GASTROGRAFIN SOLUTION 30ML PO SCH ×2 (20:07→20:43)
[2020-04-02] MEDS ORDERED: ISOVUE-370 76% 100ML VIAL As Ordered ONE (21:14)
--- NOTE | 2020-04-02 22:05 | REPVR ---
PROCEDURE INFORMATION: Exam: CT Abdomen And Pelvis With Contrast Exam date and time: 04/02/2020 9:26 PM Age: 44 years old Clinical indication: Fever; Abdominal pain; Generalized; Patient HX: PT had chemo 03-20-20; Additional info: Abdominal pain, fever, HX sigmoid cancer, eval for abscess TECHNIQUE: Imaging protocol: Computed tomography of the abdomen and pelvis with intravenous contrast. Radiation optimization: All CT scans at this facility use at least one of these dose optimization techniques: automated exposure control; mA and/or kV adjustment per patient size (includes targeted exams where dose is matched to clinical indication); or iterative reconstruction. Contrast material: ISOVUE 370; Contrast volume: 100 ml; Contrast route: INTRAVENOUS (IV); COMPARISON: CT ABD/PEL W/IV CONTRAST ONLY 03/16/2020 6:09 PM FINDINGS: Tubes, catheters and devices: Central line extending into the right atrium. Pleural space: Minimal bilateral pleural effusions with minimal bilateral lower lobe atelectasis. Liver: There are multiple focal lesions of the liver which are slightly increased overall since the prior study. There is a hepatic cystic area in the posterior right hepatic lobe which is similar. The liver at mid clavicular line measures 17.9 cm cm. Gallbladder and bile ducts: The gallbladder is somewhat contracted. Pancreas: Normal. No ductal dilation. Spleen: Normal. No splenomegaly. Adrenal glands: Normal. No mass. Kidneys and ureters: Normal. No hydronephrosis. Stomach and bowel: There appears to a been resection of the right colon. There is an ileostomy to the right of the umbilicus. Appendix: The appendix is probably absent along with the right colon. Intraperitoneal space: Large volume peritoneal ascites with a Hounsfield measurement of 13 in the right pelvis. There is a nodular surface of the peritoneum which is notable in the right lateral abdomen and pericolic gutter and posterior and caudal to the hepatic tip that also appears somewhat nodular low in the pelvis just above the bladder dome. Vasculature: Unremarkable. No abdominal aortic aneurysm. Lymph nodes: Unremarkable. No enlarged lymph nodes. Urinary bladder: The urinary bladder is within normal limits with multiple peritoneal implants along the dome. Reproductive: Unremarkable as visualized. Bones/joints: Slight anterior wedge configuration with some decreased height involving T8-T11 and greatest at the T8 and T9 levels which appear to be chronic. There is sclerosis of the superior aspect of the S1 segment. Soft tissues: There is an ostomy in the left mid abdomen which is a colostomy with the efferent limb extending to the hepatic flexure and into the pelvis and into a large ill-defined mass which is confluent with the lateral abdominal wall. The confluence extends through the abdominal musculature and continues into the subcutaneous tissues where there is residua of a tract to the skin surface. The colonic mass measures approximately the 7.7 x 6.5 x 6.8 cm with some foci of gas within suggesting necrosis. The entire area abnormality is much larger measuring 13.0 x 6.5 x 8.5 cm. There is nodular thickening of the peritoneal surface extending caudally from the mass along the left lateral pelvic sidewall to a location interposed between the rectum and urinary bladder above the seminal vesicles and is likely peritoneal or retroperitoneal spread into the pelvis but appears to spread along the left pelvic mesentery associated with the mid sigmoid as well and is slightly increased since the prior study. IMPRESSION: 1. Large invasive colonic mass of the proximal sigmoid/distal descending colon which appears to of invaded through the left anterolateral abdominal wall to the skin. There are foci of gas within the mass suggesting central necrosis. There is localized spread of the mass along the left lateral pelvic sidewall and into the mesentery extending to 8 point interposed between the rectum and urinary bladder. Overall, this process appears slightly increased since 03/16/2020. 2. Large volume peritoneal ascites with multiple peritoneal implants consistent with carcinomatosis which are slightly increased since the prior study. 3. Mild hepatomegaly with multiple focal hepatic lesions consistent with metastasis which appear slightly increased overall. 4. Minimal bilateral pleural effusions which are similar to the prior study with minimal adjacent atelectasis in the lower lobes bilaterally. Electronically signed by: Lauro Jacinto On 04/02/2020 22:05:39 PM
[2020-04-03] VITALS: BP 119/66
--- NOTE | 2020-04-03 07:43 | ECGEPIP ---
[facility] - ED Test Date: 2020-04-02 Pat Name: KENDELL DICKERSON Department: Room: - Gender: Male Shagger: : 1975 Requested By: PAM BILL Order Number: [id number] Reading MD: Delaney Batres Measurements Intervals [place] Rate: 110 P: 36 SD: 130 QRS: 8 QRSD: 85 T: 31 QT: 306 QTc: 415 Interpretive Statements SINUS TACHYCARDIA ABNORMAL RHYTHM ECG DECREASED RATE 03/16/20 Electronically Signed on 04-03-2020 7:42:39 EST by Delaney Batres
--- NOTE | 2020-04-03 10:02 | ED PDOC ---
Post-Departure Follow-Up radiology report faxed to Delaney Vaca MD Apr 03, 2020 10:02
== END 2020-04-03 00:14 | disposition home or self-care (01) ==
LOC: M ED 16:27
DX: R50.9 Fever, unspecified (principal); R00.0 Tachycardia, unspecified; R16.0 Hepatomegaly, not elsewhere classified; K76.89 Other specified diseases of liver; R18.8 Other ascites; J90 Pleural effusion, not elsewhere classified; C18.7 Malignant neoplasm of sigmoid colon; C79.89 Secondary malignant neoplasm of other specified sites; Z88.8 Allergy status to other drugs, medicaments and biological substances; Z79.899 Other long term (current) drug therapy
CPT/HCPCS: 71045; 74177; 80053; 81001; 82550; 82553; 83605; 83615; 84145; 84484; 85025; 85049; 85055; 86140; 86850; 86900; 86901; 87040; 87631; 93005; 93041; 94760; 96360; 96361; 99285; Q9963; Q9967

== ENCOUNTER 2020-04-07 07:31 | Emergency (ER) | payer OTHER ==
[~2020-04-07] VITALS: Ht 177.8 cm; Wt 79.8 kg
[~2020-04-07 07:31] MED LIST changes: +SULF1TAB93
[2020-04-07] MEDS ORDERED: NS 1,000 ML IV SCH ×2 (07:51→08:15)
[2020-04-07] MEDS ORDERED: METOCLOPRAMIDE INJ 10MG/2ML VIAL (J2765 PER 1) IV ONE (08:30)
[2020-04-07 08:44] LABS: BASO % 0.2 % (0.0-1.0); HEMATOCRIT 26.4 % (42.0-52.0); HEMOGLOBIN 8.4 g/dl (13.5-17.5); LYMPH # 0.5 10^3/uL (1.5-5.0); LYMPH % 9.7 % (24.0-44.0); MEAN CORPUSCULAR HGB CONC 31.8 g/dl (32.0-36.5); MEAN CORPUSCULAR VOLUME 97.4 fl (80.0-96.0); MONO # 0.5 10^3/uL (0.0-0.8); MONO % 10.7 % (0.0-5.0); NEUTROPHILS # 3.9 10^3/uL (1.5-8.5); NEUTROPHILS % 78.6 % (36.0-66.0); RED BLOOD COUNT 2.71 10^6/uL (4.30-6.10); WHITE BLOOD COUNT 4.9 10^3/uL (4.0-10.0)
[2020-04-07 09:06] LABS: BILIRUBIN,DIRECT 0.2 MG/DL (0.0-0.2); BILIRUBIN,TOTAL 0.5 MG/DL (0.2-1.0)
[2020-04-07 09:17] LABS: PLATELET COUNT, AUTOMATED 79 10^3/uL (150-450)
[2020-04-07 09:17] LABS: INR 1.11; PROTHROMBIN TIME 14.5 SECONDS (12.5-14.3)
[2020-04-07 09:45] LABS: RSV AMPLIFICATION NEGATIVE (NEGATIVE)
[2020-04-07] MEDS ORDERED: LIDOCAINE 1% MDV 20ML VIAL As Ordered ONE (11:16)
[2020-04-07 12:31] VITALS: BP 114/70
--- NOTE | 2020-04-07 12:42 | ECGEPIP ---
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
--- NOTE | 2020-04-07 16:31 | REP ---
INDICATION: cancer - symptomatic ascites - therapeutic drainage. COMPARISON: None. TECHNIQUE: The procedure was performed under the direct supervision of Dr. Peralta. The risks and benefits of the procedure were explained to the patient and informed consent was obtained. The largest pocket of fluid was localized in the right lower quadrant using ultrasound guidance. The skin was prepped and draped in a sterile fashion. 1% lidocaine was used as a local anesthetic. Using ultrasound guidance an 8 Taiwanese multi sidehole catheter was inserted using trocar technique. 4400 cc of low viscosity red colored fluid was withdrawn and discarded. The patient tolerated the procedure well and there were no immediate complications. After the appropriate amount to monitor convalescence the patient was discharged from the department. FINDINGS: None IMPRESSION: Ultrasound-guided paracentesis yielding 4400 cc of low viscosity red colored fluid. <Electronically signed by Matti Ya > 04/07/20 1614 <Electronically signed by Edward Peralta > 04/07/20 1628
== END 2020-04-07 12:58 | disposition home or self-care (01) ==
LOC: M ED 07:31
DX: R18.8 Other ascites (principal); C7A.1 Malignant poorly differentiated neuroendocrine tumors; Z88.8 Allergy status to other drugs, medicaments and biological substances
CPT/HCPCS: 49083; 76942; 80047; 80076; 83690; 85025; 85049; 85055; 85610; 87631; 93005; 93041; 96361; 96374; 99285; J2765

== ENCOUNTER 2020-04-11 07:43 | Emergency (ER) | payer OTHER ==
[~2020-04-11] VITALS: Ht 177.8 cm; Wt 77.3 kg
[2020-04-11] MEDS ORDERED: NS 1,000 ML IV SCH (07:56)
[2020-04-11 08:30] LABS: BASO % 0.2 % (0.0-1.0); EOS % 0.2 % (0.0-3.0); HEMATOCRIT 25.8 % (42.0-52.0); LYMPH # 0.4 10^3/uL (1.5-5.0); LYMPH % 5.5 % (24.0-44.0); MEAN CORPUSCULAR HEMOGLOBIN 30.7 pg (27.0-33.0); MEAN CORPUSCULAR VOLUME 98.9 fl (80.0-96.0); MONO # 0.7 10^3/uL (0.0-0.8); MONO % 10.9 % (0.0-5.0); NEUTROPHILS # 5.4 10^3/uL (1.5-8.5); NEUTROPHILS % 82.1 % (36.0-66.0); PLATELET COUNT, AUTOMATED 123 10^3/uL (150-450); RED BLOOD COUNT 2.61 10^6/uL (4.30-6.10); WHITE BLOOD COUNT 6.5 10^3/uL (4.0-10.0)
[2020-04-11 08:53] LABS: ALBUMIN 2.6 GM/DL (3.2-5.2); BILIRUBIN,DIRECT 0.2 MG/DL (0.0-0.2); BILIRUBIN,TOTAL 0.5 MG/DL (0.2-1.0); TOTAL PROTEIN 6.4 GM/DL (6.4-8.2)
[2020-04-11] MEDS ORDERED: PANTOPRAZOLE 40MG VIAL (C9113 PER 1) IV ONE (09:00)
[2020-04-11] MEDS ORDERED: METOCLOPRAMIDE INJ 10MG/2ML VIAL (J2765 PER 1) IV ONE (09:00)
[2020-04-11] MEDS ORDERED: ISOVUE-370 76% 100ML VIAL As Ordered ONE (09:22)
--- NOTE | 2020-04-11 09:29 | ECGEPIP ---
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
--- NOTE | 2020-04-11 09:53 | REP ---
INDICATION: abd pain. COMPARISON: 04/02/2020 TECHNIQUE: Axial contrast-enhanced images from the lung bases to the pubic symphysis using 100 cc Isovue 370 intravenous contrast material. Coronal and sagittal reformations obtained. This CT examination was performed using the following dose reduction techniques: Automated exposure control, adjustment of mA and/or kv according to the patient's size, and the use of iterative reconstruction technique. FINDINGS: Lung bases demonstrate moderate right pleural effusion and right lower lobe atelectasis. Bilateral lower lobe nodules measuring up to 9 mm likely representing metastases. Liver demonstrates innumerable metastatic lesions measuring up to roughly 7.8 cm and marked ascites is appreciated throughout the abdomen and pelvis. Spleen, pancreas, gallbladder, bilateral adrenal glands and kidneys are normal. Evaluation of the enteric system again demonstrates enterostomy and colostomy via the right and left anterior abdominal wall as respectively without evidence for bowel obstruction. A large irregular mass is identified in the left lower abdomen/pelvis with suspicion for central irregular extraluminal focus of gas, necroses, and extension into the left lateral abdominal wall (series 201; images 95-120) is essentially unchanged in appearance. Multiple mesenteric and peritoneal metastatic implants and lymph nodes are also identified and similar to prior examination. There is no evidence for bowel dilatation/obstruction. No pneumoperitoneum to suggest perforation. Pelvis demonstrates normal bladder and age-appropriate prostate/seminal vesicles. Abdominal aorta and vasculature are grossly normal/stable. Musculoskeletal structures are intact and without obvious acute abnormality. IMPRESSION: 1. Current examination demonstrates moderate increased right pleural effusion with right lower lobe atelectasis. Pulmonary nodules again identified measuring up to approximately 9 mm consistent with metastases. 2. Intra-abdominal findings including hepatic metastases, ascites, left lower quadrant mass, mesenteric adenopathy and peritoneal implants are essentially unchanged in appearance. 3. No obvious new intra-abdominopelvic findings appreciated. <Electronically signed by Adi Schroeder > 04/11/20 [id number]
--- NOTE | 2020-04-11 10:28 | REP ---
INDICATION: SOB COMPARISON: 04/02/2020 TECHNIQUE: Portable AP view of the chest FINDINGS: The mediastinum and cardiac silhouette are stable and within normal limits for portable technique. Esxcyn-A-Uirm with tip in the SVC. Right lower lobe opacities suggesting atelectasis/infiltrate and small layering effusion. Left hemithorax is clear. No pneumothorax. IMPRESSION: Right lower lobe opacities suggesting infiltrate/atelectasis and small layering effusion. <Electronically signed by Adi Schroeder > 04/11/20 1021
[2020-04-11 11:15] VITALS: BP 113/66
--- NOTE | 2020-04-11 12:08 | ED PDOC ---
Post-Departure Follow-Up radiology report faxed deborah hayden Sarah MD Apr 11, 2020 12:08
== END 2020-04-11 13:10 | disposition home or self-care (01) ==
LOC: M ED 07:43
DX: R18.8 Other ascites (principal); R00.0 Tachycardia, unspecified; J90 Pleural effusion, not elsewhere classified; J98.11 Atelectasis; C18.7 Malignant neoplasm of sigmoid colon; C78.7 Secondary malignant neoplasm of liver and intrahepatic bile duct; R91.8 Other nonspecific abnormal finding of lung field; C79.89 Secondary malignant neoplasm of other specified sites; Z88.8 Allergy status to other drugs, medicaments and biological substances; Z79.899 Other long term (current) drug therapy
CPT/HCPCS: 71045; 74177; 80047; 80076; 83690; 85025; 93005; 93041; 96361; 96374; 96375; 99285; C9113; J2765; Q9967

== ENCOUNTER → 2020-04-13 | Outpatient (CLI) | payer OTHER ==
[~2020-04-13] MED LIST changes: +SODIUM BICARBONATE 8.4% INJ 50MEQ 50 ML VIAL As Ordered ONE
[2020-04-13 15:05] VITALS: BP 120/70
--- NOTE | 2020-04-13 16:50 | REP ---
INDICATION: RECURRENT ASCITES 2ND TO CANCER The patient has a history of ascites COMPARISON: None. TECHNIQUE: The procedure was performed by IVORY Almeida, under the direct supervision of Dr. Simons The risks and benefits of the procedure were explained to the patient and an informed consent was obtained both verbally and written. Directly prior to the start of the procedure a formal time-out was completed in the procedure room. The largest pocket of fluid was localized in the right lower quadrant using ultrasound guidance. The skin was prepped and draped in a sterile fashion. Eleven ML of buffered lidocaine was used as a local anesthetic. An 8-Kinyarwanda multi side-hole catheter was inserted using trocar technique. FINDINGS: 4500 mL of erin colored fluid was removed and discarded. The patient tolerated the procedure well and there were no immediate complications. After the appropriate amount of monitored convalescence, the patient was discharged from the department. IMPRESSION: 4500 mL of erin colored ascites was removed and discarded. <Electronically signed by Ruby Son > 04/13/20 1602 <Electronically signed by Westley Simons > 04/13/20 1646
== END ==
LOC: M IRPRO 13:28
PROVIDERS: ATTEND Emergency Medicine
DX: R18.8 Other ascites (principal)

== ENCOUNTER → 2020-04-17 | Outpatient (CLI) | payer OTHER ==
[2020-04-17 14:10] VITALS: BP 110/65
--- NOTE | 2020-04-17 17:03 | REP ---
INDICATION: ASCITES The patient has a history of ascites COMPARISON: None. TECHNIQUE: The procedure was performed by IVORY Almeida, under the direct supervision of Dr. Simons The risks and benefits of the procedure were explained to the patient and an informed consent was obtained both verbally and written. Directly prior to the start of the procedure a formal time-out was completed in the procedure room. The largest pocket of fluid was localized in the right flank using ultrasound guidance. The skin was prepped and draped in a sterile fashion. Eleven ML of buffered lidocaine was used as a local anesthetic. An 8-Korean multi side-hole catheter was inserted using trocar technique. FINDINGS: 2500 mL of red-tinged ascites was removed and discarded. The patient tolerated the procedure well and there were no immediate complications. After the appropriate amount of monitored convalescence, the patient was discharged from the department. IMPRESSION: Ultrasound-guided paracentesis with removal of 2500 mL of ascites. <Electronically signed by Ruby Son > 04/17/20 1444 <Electronically signed by Westley Simons > 04/17/20 [id number]
== END ==
LOC: M IRPRO 13:00
DX: C7A.1 Malignant poorly differentiated neuroendocrine tumors (principal)

== ENCOUNTER → 2020-04-21 | Outpatient (POV) | payer OTHER ==
[~2020-04-21] MED LIST changes: -AMIT25TA PO; +AMIT25TA17 PO; -SODIUM BICARBONATE 8.4% INJ 50MEQ 50 ML VIAL As Ordered ONE
--- NOTE | 2020-04-22 14:25 | IRCOV ---
[facility] IR Consult Office Visit IR Consult Office Visit DATE: Apr 21, 2020 Patient agreed to this telephone consultation. I spent 30 minutes reviewing patient's records, imaging and talking to the patient. REASON FOR CONSULTATION/CHIEF COMPLAINT: Malignant ascites. 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 Each time he states he drains 2-3 L. He feels well for a few days and then again feels distended. He is unable to eat due to abdominal fullness. He feels no appetite and describes extreme fatigue. No fevers or chills. Diagnosed with malignant poorly differentiated neuroendocrine tumor in November 2018. Reportedly he progressed through several lines of chemotherapy and is now on immunotherapy with Nivolumab. He has ulcerative colitis and has a surgical ileostomy. ALLERGIES: Please see below. HOME MEDICATIONS: Please see below. PAST MEDICAL HISTORY: Neuroendocrine tumor Ulcerative colitis PAST SURGICAL HISTORY: Surgical ileostomy FAMILY HISTORY: Noncontributory. SOCIAL HISTORY: Nonsmoker. Denies alcohol or drugs. REVIEW OF SYSTEMS: Otherwise negative. PHYSICAL EXAMINATION: No video on patient side. LABORATORY DATA: 04/11/2020 hemoglobin 8.0 hematocrit 25.8 WBC 6.5 platelets 123. Bilirubin 0.5 AST 57 ALT 18 ALP 337 04/02/2020 sodium 132 potassium 4.1 BUN 10 creatinine 0.67 GFR greater than 60 04/07/2020 INR 1.1 Imaging: I personally reviewed the CT abdomen and pelvis with contrast performed April 2020. Moderate ascites. Numerous lesions in the liver. Peritoneal carcinomatosis. I see bilateral lower quadrant anterior abdominal wall defects. ASSESSMENT/PLAN: 44-year-old male with advanced metastatic neuroendocrine tumor with recurrent malignant ascites requiring 1-2 drainages per week. Patient prese nts for evaluation for Pleurx placement for malignant ascites. I see a potential accessible pocket in the right lower quadrant, there is extensive, left greater than right-sided peritoneal carcinomatosis. We discussed the risks and benefits of the procedure and patient would like to proceed. We'll schedule the patient for Pleurx placement. Thank you for this referral. Cc Dr[facility]. CC Lloyd Min [employer] Allergies Coded Allergies: azathioprine (Verified Allergy, Severe, pancreatitis, 03/16/20) Home Medications Scheduled Bacillus Coagulans (Bacid with Lactospore), 1 CAP PO WM Cholecalciferol (Vitamin D3) (Vitamin D3), 2,000 UNITS PO DAILY, (Reported) Famotidine (Famotidine), 40 MG PO DAILY, (Reported) Fluticasone Propionate (Flonase Allergy Relief), 1 SPRAY NA DAILY, (Reported) Scheduled PRN Ondansetron HCl (Ondansetron HCl), 4 MG PO Q6HP PRN for NAUSEA OR VOMITING, (Reported) Prochlorperazine Maleate (Prochlorperazine Maleate), 10 MG PO Q6H PRN for NAUSEA OR VOMITING, (Reported) Miscellaneous Medications Sulfamethoxazole/Trimethoprim (Sulfamethoxazole-Tmp Ds Tablet), (Reported) VERNA RETANA MD Apr 22, 2020 14:25
== END ==
LOC: M TMIRPOV 08:14
PROVIDERS: ATTEND Radiology Diagnostic Radiology
DX: C7B.8 Other secondary neuroendocrine tumors (principal); R18.0 Malignant ascites; K51.90 Ulcerative colitis, unspecified, without complications; Z79.899 Other long term (current) drug therapy; Z93.2 Ileostomy status

== ENCOUNTER 2020-04-23 08:31 | Outpatient (CLI) | payer OTHER ==
[~2020-04-23] VITALS: Ht 172.7 cm; Wt 77.0 kg
[~2020-04-23 08:31] MED LIST changes: +ACETAMINOPHEN TAB 650MG DOSE (2X325MG) PO SCH; -LIDOCAINE 1% MDV 20ML VIAL As Ordered ONE; -SODIUM BICARBONATE 8.4% INJ 50MEQ 50 ML VIAL As Ordered ONE; +diphenhydrAMINE 25MG CAP PO SCH
[2020-04-23] MEDS ORDERED: SODIUM CHLORIDE 0.9% INJ 10 ML SYR IV SCH (09:00)
[2020-04-23] MEDS ORDERED: SODIUM CHLORIDE 0.9% INJ 10 ML SYR IV PRN (09:00)
[2020-04-23 10:55] VITALS: BP 96/52
[2020-04-23 12:35] VITALS: BP 101/54
[2020-04-23 12:50] VITALS: BP 109/57
[2020-04-23 14:20] VITALS: BP 111/71
[2020-04-23 14:45] VITALS: BP 111/71
== END 2020-04-23 14:45 | disposition home or self-care (01) ==
LOC: M INFU 08:31
PROVIDERS: ATTEND Internal Medicine Hematology & Oncology
DX: C7A.1 Malignant poorly differentiated neuroendocrine tumors (principal); Z88.8 Allergy status to other drugs, medicaments and biological substances
CPT/HCPCS: 36430; 36591; 86850; 86900; 86901; 86920; J1642; P9016

== ENCOUNTER → 2020-04-23 | Outpatient (CLI) | payer OTHER ==
[~2020-04-23] MED LIST changes: +LIDOCAINE 1% MDV 20ML VIAL As Ordered ONE; +SODIUM BICARBONATE 8.4% INJ 50MEQ 50 ML VIAL As Ordered ONE
[2020-04-23 09:54] VITALS: BP 89/53
--- NOTE | 2020-04-23 17:12 | REP ---
INDICATION: ASCITES DUE TO STAGE IV CANCER The patient has a history of ascites COMPARISON: None. TECHNIQUE: The procedure was performed by Ruby Son [facility], under the direct supervision of Dr. Simons The risks and benefits of the procedure were explained to the patient and an informed consent was obtained both verbally and written. Directly prior to the start of the procedure a formal time-out was completed in the procedure room. The largest pocket of fluid was localized in the left flank using ultrasound guidance. The skin was prepped and draped in a sterile fashion. Eleven ML of buffered lidocaine was used as a local anesthetic. Under ultrasound guidance an 8-Jordanian multi side-hole catheter was inserted using trocar technique. FINDINGS: 1600 mL of red-tinged ascites was removed and discarded. The patient tolerated the procedure well and there were no immediate complications. After the appropriate amount of monitored convalescence, the patient was discharged from the department. IMPRESSION: Ultrasound-guided paracentesis with removal of 1600 mL of ascites. <Electronically signed by Ruby Son > 04/23/20 1108 <Electronically signed by Westley Simons > 04/23/20 0889
== END ==
LOC: M IRPRO 09:01
DX: R18.8 Other ascites (principal); C7A.1 Malignant poorly differentiated neuroendocrine tumors